=== PATIENT | female | born 1965 | race Two or more races ===

== ENCOUNTER 2017-03-08 13:22 | Emergency (ER) | payer OTHER ==
[2017-03-08 13:28] VITALS: TEMP 98; BMI 23.6
--- NOTE | 2017-03-08 14:02 | PDOC ---
History of Present Illness - General Chief Complaint: Pain Stated Complaint: PAIN Time Seen by Provider: 03/08/17 13:44 History Source: Patient - History of Present Illness Timing/Duration: other (this am) Associated Symptoms: reports: headaches, shortness of breath. denies: chest pain, cough, fever/chills, nausea/vomiting, weakness Past History - Past Medical History Allergies/Adverse Reactions: Allergies Allergy/AdvReac Type Severity Reaction Status Date / Time Penicillins Allergy Verified 03/08/17 13:28 Home Medications: Ambulatory Orders Folic Acid 1 mg PO DAILY 03/08/17 Losartan Potassium 0 mg PO DAILY 03/08/17 Methotrexate Sodium [Methotrexate] 12.5 mg PO WEEKLY 03/08/17 Metoprolol Succinate [Toprol Xl -] 25 mg PO DAILY 03/08/17 Oxycodone HCl 10 mg PO PRN PRN 03/08/17 Prednisone 5 mg PO DAILY 03/08/17 Anemia: Yes HTN: Yes Other medical history: ARTHRITIS - Surgical History Abdominal Surgery: No Appendectomy: No Cardiac Surgery: No Cholecystectomy: No Lung Surgery: No Neurologic Surgery: Yes (anurysum BRAIN) Orthopedic Surgery: Yes - Psycho/Social/Smoking Cessation Hx Anxiety: No Suicidal Ideation: No Smoking Status: Yes Smoking History: Current every day smoker Have you smoked in the past 12 months: Yes Number of Cigarettes Smoked Daily: 3 Information on smoking cessation initiated: No 'Breaking Loose' booklet given: 10/28/15 Hx Alcohol Use: Yes (SOCIAL) Drug/Substance Use Hx: No Substance Use Type: None Review of Systems - Review of Systems Constitutional: No: Chills, Fever HEENTM: No: Blurred Vision Respiratory: Yes: Shortness of Breath. No: Cough Cardiac (ROS): No: Chest Pain ABD/GI: No: Nausea, Vomiting Neurological: Yes: Headache, Dizziness. No: Numbness, Tingling, Weakness *Physical Exam - Vital Signs Last Vital Signs Temp Pulse Resp BP Pulse Ox 98 F 85 18 144/90 99 03/08/17 13:24 03/08/17 13:24 03/08/17 13:24 03/08/17 13:24 03/08/17 13:24 - Physical Exam General Appearance: Yes: Appropriately Dressed. No: Apparent Distress HEENT: positive: Normal Voice Neck: positive: Supple Respiratory/Chest: positive: Lungs Clear, Normal Breath Sounds. negative: Respiratory Distress Cardiovascular: positive: Regular Rate, S1, S2 Extremity: positive: Other (finger deformities 2/2 RA) Integumentary: positive: Dry, Warm Neurologic: positive: Fully Oriented, Alert, Normal Mood/Affect, Motor Strength 5/5. negative: Facial Droop Heart Score/ECG Review - ECG Intrepretation Comment:: 03/08/17 15:05 EKG w/ NSR, no ST-T wave changes, intervals and axis wnl ED Treatment Course - LABORATORY CBC & Chemistry Diagram: 03/08/17 14:50 03/08/17 14:50 - RADIOLOGY Radiology Studies Ordered: Category Date Time Status HEAD CT WITHOUT CONTRAST [CT] Stat CT Scan 03/08/17 13:55 Ordered CHEST X-RAY PORTABLE* [RAD] Stat Radiology 03/08/17 13:55 Ordered Medical Decision Making - Medical Decision Making 03/08/17 13:58 51-year-old female, history of RA on methotrexate and narcotics, brain aneurysm status post clipping, poorly controlled hypertension on multiple medications, here with multiple complaints today. Patient reports that her blood pressure this a.m. was 170s over 80s. Did have shortness of breath and dizziness at 9: 00 this morning that has since resolved. No chest pain, diaphoresis, nausea or vomiting. States her blood pressure remains poorly controlled despite being compliant with her medications and currently being told that her PMD cannot clear her for RA surgery secondary to chronic elevated BP. Patient also complaining of a right-sided headache radiating into right shoulder and arm 1 week intermittently. No dizziness, visual changes, nausea, vomiting or focal weakness See exam Poorly controlled HTN BP 144/90 in ED Asx currently -will check labs given sob/dizziness this am MOTA x 1 week s/p aneurysm chipping remotely No focal deficits -CT head 03/08/17 16:[address] unremarkable. Final BP 139/88. Pt well enough for discharge to continue f/u with her PMD 03/08/17 16:20 *DC/Admit/Observation/Transfer Diagnosis at time of Disposition: Elevated blood pressure reading Headache Qualifiers: Headache type: unspecified Headache chronicity pattern: acute headache Intractability: not intractable Qualified Code(s): R51 - Headache - Discharge Dispostion Disposition: HOME Condition at time of disposition: Improved - Referrals Referrals: Ruben Camargo [Primary Care Provider] - - Patient Instructions Additional Instructions: Your blood work and CAT scan were normal. Your blood pressure in the ED was 140s over 90s. Continue to take her medication and follow-up with your primary care physician
[2017-03-08 15:07] LABS: BASOPHIL 0.9 % (0-2.0); MCH 28.9 pg (25.7-33.7); MCHC 33.1 g/dl (32.0-36.0); MEAN CELL VOLUME 87.3 fl (80-96); NEUTROPHILS 62.1 % (42.8-82.8); PLATELET COUNT 327 K/MM3 (134-434); RDW 16.2 % (11.6-15.6)
[2017-03-08 15:21] LABS: URINE APPEARANCE CLEAR; URINE BILIRUBIN NEGATIVE (NEGATIVE); URINE BLOOD 2+ (NEGATIVE); URINE COLOR STRAW; URINE GLUCOSE (UA) NEGATIVE (NEGATIVE); URINE KETONE NEGATIVE (NEGATIVE); URINE LEUK ESTERASE TRACE (NEGATIVE); URINE NITRITE NEGATIVE (NEGATIVE); URINE PROTEIN NEGATIVE (NEGATIVE); URINE UROBILINOGEN NEGATIVE mg/dL (0.2-1.0)
[2017-03-08 15:25] LABS: URINE BACTERIA RARE /hpf (NONE SEEN); URINE MUCUS RARE; URINE RBC 11 /hpf (0-3); URINE WBC 1 /hpf (3-5)
[2017-03-08 15:47] LABS: ANION GAP 7 (8-16); CO2 29 mmol/L (21-32); CREATININE 0.7 mg/dL (0.55-1.02); GLUCOSE,RANDOM 81 mg/dL (74-106)
[2017-03-08 15:48] LABS: ALBUMIN 3.7 g/dl (3.4-5.0); BILIRUBIN,TOTAL 0.3 mg/dL (0.2-1.0); CALCIUM 9.8 mg/dL (8.5-10.1); SGOT/AST 18 U/L (15-37); SGPT/ALT 19 U/L (12-78); TOT PROT 7.3 g/dl (6.4-8.2)
[2017-03-08 15:50] LABS: ALK PHOS 83 U/L (45-117); TROPONIN I < 0.02 ng/ml (0.00-0.05)
[2017-03-08 16:21] VITALS: BP 139/88; PULSE 82
--- NOTE | 2017-03-09 09:14 | EKG ---
Test Reason : Blood Pressure : / mmHG Vent. Rate : 068 BPM Atrial Rate : 068 BPM P-R Int : 152 ms QRS Dur : 110 ms QT Int : 412 ms P-R-T Axes : 059 -07 043 degrees QTc Int : 438 ms NORMAL SINUS RHYTHM NORMAL ECG WHEN COMPARED WITH ECG OF 23-JUN-2016 16:17, NONSPECIFIC T WAVE ABNORMALITY NO LONGER EVIDENT IN ANTEROLATERAL LEADS Confirmed by TRISTAN REDDY, PINA ([id number]) on 03/09/2017 9:13:28 AM Referred By: Confirmed By:PINA HUDSON MD
== END 2017-03-08 16:21 | disposition home or self-care (01) ==
LOC: JER 13:22
DX: I10 Essential (primary) hypertension (principal); M06.80 Other specified rheumatoid arthritis, unspecified site; D64.9 Anemia, unspecified; F17.210 Nicotine dependence, cigarettes, uncomplicated
CPT/HCPCS: 36415; 70450-TC; 71010-TC; 80053; 81003; 81015; 82550; 84484; 85025; 93005; 93010; 99283-25

== ENCOUNTER 2019-06-30 13:10 | Inpatient (IN) | payer OTHER ==
[2019-06-30 13:45] VITALS: BMI 24.3
--- NOTE | 2019-06-30 15:17 | HP ---
CIWA Score Nausea/Vomitin-Mild Nausea/No Vomiting Muscle Tremors: 3 Anxiety: 3 Agitation: 5 Paroxysmal Sweats: No Perspiration Orientation: 0-Oriented Tacttile Disturbances: 0-None Auditory Disturbances: 0-None Visual Disturbances: 0-None Headache: 0-None Present CIWA-Ar Total Score: 12 - Admission Criteria [facility]AS[facility] Guidelines: Admission for Medically Managed Detox: Requires at least one of the followin. CIWA greater than 12 2. Seizures within the past 24 hours 3. Delirium tremens within the past 24 hours 4. Hallucinations within the past 24 hours 5. Acute intervention needed for co occurring medical disorder 6. Acute intervention needed for co occurring psychiatric disorder 7. Severe withdrawal that cannot be handled at a lower level of care (continued vomiting, continued diarrhea, abnormal vital signs) requiring intravenous medication and/or fluids 8. Admitting History and Physical - Admission History Source: Patient - Past Medical History Cardiovascular: Yes: HTN Heme/Onc: Yes: Anemia Rheumatology: Yes: Rheumatoid Arthritis - Past Surgical History Past Surgical History: Yes: Joint Replacement (right knee) - Smoking History Smoking history: Current every day smoker Have you smoked in the past 12 months: Yes Aproximately how many cigarettes per day: 6 - Alcohol/Substance Use Hx Alcohol Use: Yes (SOCIAL) History of Substance Use: reports: Prescription - Social History ADL: Independent History of Recent Travel: No Admission [facility] Allergies/Adverse Reactions: Allergies Allergy/AdvReac Type Severity Reaction Status Date / Time Penicillins Allergy Verified 06/30/19 13:34 History of Present Illness: 54 y.o. F PMH rheumatoid arthritis, HTN, ruptured aneurysm s/p clip presenting for benzo detox. Klonopin: Last took 1/2 stick xanax last night. Does not use daily. Took a whole pill on Thursday unsure of dose. Used to take 1/2 of the pill previously. Has been taking benzos for about 1 year, used to take xanax but recently switched to klonopin. Oxy: prescribed by her doctor for arthritis. Heroin: yesterday. uses when it is available, not daily. Uses maximum 3 bags, never used IV. Started using 2 years ago. EtOH: wine on occasion last drank 1 month ago. Cigarettes: 6 cigarettes >20 years PSH: 4 surgeries for hands, R knee replacement, L ankle surgery All: PCN Meds: amlodopine, Methrotrexate , Enbrel injections monthly. Patient is noncompliant with medications. Exam Limitations: No Limitations - Ebola screening Have you traveled outside of the country in the last 21 days: No Have you had contact with anyone from an Ebola affected area: No Do you have a fever: No - Review of Systems Constitutional: No Symptoms Reported EENT: reports: No Symptoms Reported Respiratory: reports: No Symptoms reported Cardiac: reports: No Symptoms Reported GI: reports: No Symptoms Reported Musculoskeletal: reports: Joint Pain (chronic) Integumentary: reports: No Symptoms Reported Neuro: reports: Tremors Endocrine: reports: No Symptoms Reported Hematology: reports: No Symptoms Reported Psychiatric: reports: Mood/Affect Appropiate, Orientated x3 Patient History - Patient Medical History Hx Anemia: Yes Hx Asthma: No Hx Chronic Obstructive Pulmonary Disease (COPD): No Hx Cancer: No Hx Cardiac Disorders: No Hx Congestive Heart Failure: No Hx Hypertension: Yes Hx Hypercholesterolemia: No Hx Pacemaker: No HX Cerebrovascular Accident: No Hx Seizures: No Hx Dementia: No Hx Diabetes: No Hx Gastrointestinal Disorders: No Hx Liver Disease: No Hx Genitourinary Disorders: No Hx Sexually Transmitted Disorders: No Hx Renal Disease (ESRD): No Hx Thyroid Disease: No Hx Human Immunodeficiency Virus (HIV): No Hx Hepatitis C: No Hx Depression: No Hx Suicide Attempt: No Hx Bipolar Disorder: No Hx Schizophrenia: No - Patient Surgical History Past Surgical History: Yes Hx Neurologic Surgery: Yes (aneurysm clip) Hx Cataract Extraction: No Hx Cardiac Surgery: No Hx Lung Surgery: No Hx Breast Surgery: No Hx Breast Biopsy: No Hx Abdominal Surgery: No Hx Appendectomy: No Hx Cholecystectomy: No Hx Genitourinary Surgery: No Hx Section: No Hx Orthopedic Surgery: Yes Hx Hysterectomy: No Anesthesia Reaction: No - Smoking Cessation Smoking history: Current every day smoker Have you smoked in the past 12 months: Yes Aproximately how many cigarettes per day: 6 Initiated information on smoking cessation: Yes 'Breaking Loose' booklet given: 06/30/19 - Substance & Tx. History Substance Use Type: Heroin, Opiates, Prescribed - Substances abused Alprazolam (Xanax) Substance route: Oral Frequency: Daily Amount used: 2 sticks Age of first use: 52 Date of last use: 06/29/19 Benzodiazepine (Klonopin) Substance route: Oral Frequency: Daily Amount used: 4 tabs Age of first use: 54 Date of last use: 06/28/19 Heroin Substance route: Inhalation Frequency: 3-6 times per week Amount used: 3-4 bags Age of first use: 51 Date of last use: 06/29/19 Admission Physical Exam [facility] - Vital Signs Vital Signs: Vital Signs - 24 hr 06/30/19 13:39 Temperature 98.1 F Pulse Rate 80 Respiratory 18 Rate Blood Pressure 161/105 H - Physical General Appearance: Yes: Tremorous HEENTM: Yes: Normal ENT Inspection, Normocephalic Respiratory: Yes: Lungs Clear, Normal Breath Sounds, No Respiratory Distress, No Accessory Muscle Use Neck: Yes: No masses,lesions,Nodules Cardiology: Yes: Regular Rhythm, Regular Rate, S1, S2 Abdominal: Yes: Non Tender, Soft Back: Yes: Normal Inspection Musculoskeletal: Yes: Joint Stiffness (b/l ulnar deviations of hands; B/l LE stiffness), Muscle Pain Extremities: Yes: Other (severe rheumatoid arthritis of hands, ankles, knees, hips) Neurological: Yes: Fully Oriented, Alert, Normal Mood/Affect Integumentary: Yes: Within Normal Limits Lymphatic: Yes: Within Normal Limits Breathalyzer - Breathalyzer Breathalyzer: 0 Urine Drug Screen - Test Device Lot number: [id number] Expiration date: 03/16/21 - Control Is test valid?: Yes - Results Drug screen NEGATIVE: No Urine drug screen results: MOP-Opiates, OXY-Oxycodone, BZO-Benzodiazepines Inpatient Rehab Admission - Rehab Decision to Admit Inpatient rehab admission?: No
[2019-06-30] MEDS ORDERED: BISMUTH SUBSALICYLATE 524 MG/30 ML UD PO PRN (15:57)
[2019-06-30] MEDS ORDERED: ACETAMINOPHEN 325 MG TABLET (FP) PO PRN ×2 (15:57)
[2019-06-30] MEDS ORDERED: IBUPROFEN 400 MG TABLET (FP) PO PRN (15:57)
[2019-06-30] MEDS ORDERED: METHOCARBAMOL 500 MG TABLET PO PRN (15:57)
[2019-06-30] MEDS ORDERED: MAGNESIUM HYDROX 2400MG/30ML ORAL SUSPENSION 30 ML CUP PO PRN (15:57)
[2019-06-30] MEDS ORDERED: MAG HYDROX/AL HYDROX/SIMETH 30 ML UNIT-DOSE CUP PO PRN (15:57)
[2019-06-30] MEDS ORDERED: MAGNESIUM CITRATE 300 ML BOTTLE PO PRN (15:57)
[2019-06-30] MEDS ORDERED: NICOTINE POLACRILEX 2 MG GUM BUC PRN (15:57)
[2019-06-30] MEDS ORDERED: MENTHOL/PHENOL 1 EACH UD MM PRN (15:57)
--- NOTE | 2019-06-30 16:23 | PN ---
Teaching Attending Note Name of Resident: Linnea Michaud ATTENDING PHYSICIAN STATEMENT I saw and evaluated the patient. I reviewed the resident's note and discussed the case with the resident. I agree with the resident's findings and plan as documented. SUBJECTIVE:54 y.o. female pt here requesting detox from sedative use , reports illicit xanax and klonopin in the last year , not daily use . reports episode of Klonopin use 1 week ago Thursday , 11 yr old dtr called 911 and [facility] to [facility], CPS called . Heroin: reports use x 2 years , latest yesterday. uses when it is available, not daily , denies symptoms if not using , 1 bag on average , maximum 3 bags heroin via inhalation , denies IV. PMH rheumatoid arthritis, HTN, ruptured aneurysm s/p clipping surgeries for hands x 4 lexy , R knee replacement, L ankle surgery tobacco : 6 cigs/day OBJECTIVE: wnwd Vital Signs - 24 hr 06/30/19 13:39 Temperature 98.1 F Pulse Rate 80 Respiratory 18 Rate Blood Pressure 161/105 H ASSESSMENT AND PLAN: Sedative anxiolytic abuse , episodic Nicotine dependence - smoking cessation counseling
[2019-06-30] MEDS: NICOTINE 21 MG/24 HOURS TOPICAL PATCH TD SCH (17:04)
[2019-06-30] MEDS: diazePAM 5 MG TABLET PO PRN (17:04)
[2019-06-30] MEDS: hydrOXYzine PAMOATE 25 MG CAPSULE (FP) PO PRN (18:18)
[2019-06-30] MEDS ORDERED: MELATONIN 5 MG TABLETS PO PRN (22:00)
[2019-06-30] MEDS: THIAMINE HCL 100 MG TABLET (FP) PO SCH (22:05)
[2019-06-30] MEDS: diazePAM 5 MG TABLET PO SCH (22:06)
[2019-07-01] MEDS: diazePAM 5 MG TABLET PO PRN (02:04)
[2019-07-01] MEDS: diazePAM 5 MG TABLET PO SCH ×3 (06:17→22:22)
[2019-07-01] MEDS: NICOTINE 21 MG/24 HOURS TOPICAL PATCH TD SCH (10:27)
[2019-07-01] MEDS: LOSARTAN POTASSIUM 50 MG TABLET (FP) PO SCH (10:27)
[2019-07-01] MEDS: PRENATAL VITAMINS W/ FOLIC ACID TABLET (FP) PO SCH (10:27)
[2019-07-01 10:29] LABS: ALBUMIN 3.7 g/dl (3.4-5.0); BILIRUBIN,TOTAL 0.3 mg/dL (0.2-1); BLOOD UREA NITROGEN 10.4 mg/dL (7-18); CREATININE 0.6 mg/dL (0.55-1.3); POTASSIUM 3.2 mmol/L (3.5-5.1); TOT PROT 7.4 g/dl (6.4-8.2)
[2019-07-01 10:46] LABS: HEMATOCRIT 36.7 % (32.4-45.2); HEMOGLOBIN 12.2 GM/dL (10.7-15.3); MCHC 33.2 g/dl (32.0-36.0); MEAN CELL VOLUME 84.4 fl (80-96); MEAN PLT VOLUME 8.6 fl (7.5-11.1); PLATELET COUNT 305 K/MM3 (134-434); RBC 4.35 M/mm3 (3.60-5.2); RDW 15.9 % (11.6-15.6); WHITE BLOOD COUNT 5.2 K/mm3 (4.0-10.0)
[2019-07-01] MEDS: hydrOXYzine PAMOATE 25 MG CAPSULE (FP) PO PRN (12:39)
--- NOTE | 2019-07-01 13:25 | PN ---
S CIWA - CIWA Score Nausea/Vomitin-No Nausea/No Vomiting Muscle Tremors: 3 Anxiety: 3 Agitation: 2 Paroxysmal Sweats: 2 Orientation: 0-Oriented Tacttile Disturbances: 0-None Auditory Disturbances: 0-None Visual Disturbances: 0-None Headache: 0-None Present CIWA-Ar Total Score: 10 BHS Progress Note (SOAP) Subjective: sweats shakes irritable body aches Objective: 07/01/19 13:23 Vital Signs Temperature 98.1 F 07/01/19 10:05 Pulse Rate 106 H 07/01/19 10:05 Respiratory Rate 18 07/01/19 10:05 Blood Pressure 144/73 07/01/19 10:05 O2 Sat by Pulse Oximetry (%) Laboratory Tests 06/30/19 07/01/19 07/01/19 14:53 07:00 07:00 WBC 5.2 RBC 4.35 Hgb 12.2 Hct 36.7 MCV 84.4 MCH 28.0 MCHC 33.2 RDW 15.9 H Plt Count 305 MPV 8.6 Sodium 143 Potassium 3.2 L Chloride 112 H Carbon Dioxide 24 Anion Gap 8 BUN 10.4 Creatinine 0.6 Est GFR (CKD-EPI)AfAm 119.77 Est GFR (CKD-EPI)NonAf 103.34 Random Glucose 94 Calcium 10.0 Total Bilirubin 0.3 AST 24 ALT 24 Alkaline Phosphatase 105 Total Protein 7.4 Albumin 3.7 POC Urine HCG, Qual Negative RPR Titer 07/01/19 07:00 WBC RBC Hgb Hct MCV MCH MCHC RDW Plt Count MPV Sodium Potassium Chloride Carbon Dioxide Anion Gap BUN Creatinine Est GFR (CKD-EPI)AfAm Est GFR (CKD-EPI)NonAf Random Glucose Calcium Total Bilirubin AST ALT Alkaline Phosphatase Total Protein Albumin POC Urine HCG, Qual RPR Titer Nonreactive labs noted mild hypokalemia 3.4 will replenish aaox3 ambulating no acute distress Assessment: 07/01/19 13:24 withdrawals sx Plan: continue detox kdur 20meq x 2 days increase fluids
[2019-07-01] MEDS: GABAPENTIN 100 MG CAPSULE (FP) PO PRN (19:47)
[2019-07-01] MEDS ORDERED: cloNIDine HCL 0.1 MG TABLET PO ONE (19:48)
[2019-07-01] MEDS: THIAMINE HCL 100 MG TABLET (FP) PO SCH (22:21)
[2019-07-02] MEDS: GABAPENTIN 100 MG CAPSULE (FP) PO PRN ×3 (05:49→22:34)
[2019-07-02] MEDS: diazePAM 5 MG TABLET PO SCH ×2 (05:50→17:19)
[2019-07-02] MEDS: NICOTINE 21 MG/24 HOURS TOPICAL PATCH TD SCH (10:19)
[2019-07-02] MEDS: LOSARTAN POTASSIUM 50 MG TABLET (FP) PO SCH (10:20)
[2019-07-02] MEDS: PRENATAL VITAMINS W/ FOLIC ACID TABLET (FP) PO SCH (10:20)
--- NOTE | 2019-07-02 15:17 | PN ---
S CIWA - CIWA Score Nausea/Vomitin-No Nausea/No Vomiting Muscle Tremors: None Anxiety: 4-Mod. Anxious/Guarded Agitation: 3 Paroxysmal Sweats: No Perspiration Orientation: 0-Oriented Tacttile Disturbances: 2-Mild Itch/Numbness/Burn Auditory Disturbances: 0-None Visual Disturbances: 0-None Headache: 0-None Present CIWA-Ar Total Score: 9 BHS Progress Note (SOAP) Subjective: Body Aches, Anxious. Objective: PATIENT A & O X 3, OBSERVED AMBULATING ON DETOX UNIT UNASSISTED. IN NO ACUTE DISTRESS. 07/02/19 15:18 Vital Signs Temperature 99.0 F 07/02/19 14:53 Pulse Rate 91 H 07/02/19 14:53 Respiratory Rate 18 07/02/19 14:53 Blood Pressure 169/90 07/02/19 14:53 O2 Sat by Pulse Oximetry (%) Laboratory Tests 06/30/19 07/01/19 07/01/19 14:53 07:00 07:00 WBC 5.2 RBC 4.35 Hgb 12.2 Hct 36.7 MCV 84.4 MCH 28.0 MCHC 33.2 RDW 15.9 H Plt Count 305 MPV 8.6 Sodium 143 Potassium 3.2 L Chloride 112 H Carbon Dioxide 24 Anion Gap 8 BUN 10.4 Creatinine 0.6 Est GFR (CKD-EPI)AfAm 119.77 Est GFR (CKD-EPI)NonAf 103.34 Random Glucose 94 Calcium 10.0 Total Bilirubin 0.3 AST 24 ALT 24 Alkaline Phosphatase 105 Total Protein 7.4 Albumin 3.7 POC Urine HCG, Qual Negative RPR Titer 07/01/19 07:00 WBC RBC Hgb Hct MCV MCH MCHC RDW Plt Count MPV Sodium Potassium Chloride Carbon Dioxide Anion Gap BUN Creatinine Est GFR (CKD-EPI)AfAm Est GFR (CKD-EPI)NonAf Random Glucose Calcium Total Bilirubin AST ALT Alkaline Phosphatase Total Protein Albumin POC Urine HCG, Qual RPR Titer Nonreactive LABS NOTED. Assessment: 07/02/19 15:20 WITHDRAWAL SYMPTOMS. HYPOKALEMIA. Plan: CONTINUE DETOX. K-DUR, 40 MEQ ORALLY X 1 DOSE FOR LOW K LEVEL NOTED ON DETOX ADMISSION LABORATORY ASSESSMENT. PATIENT SCHEDULED FOR D/C FROM DETOX UNIT TOMORROW.
[2019-07-02] MEDS ORDERED: POTASSIUM CHLORIDE TABS 20 MEQ TABLET.ER (FP) PO ONE (15:19)
[2019-07-02] MEDS: hydrOXYzine PAMOATE 25 MG CAPSULE (FP) PO PRN (17:33)
[2019-07-02] MEDS: diazePAM 5 MG TABLET PO PRN (22:34)
[2019-07-02] MEDS: THIAMINE HCL 100 MG TABLET (FP) PO SCH (22:35)
[2019-07-03] MEDS: GABAPENTIN 100 MG CAPSULE (FP) PO PRN (05:22)
[2019-07-03] MEDS ORDERED: diazePAM 5 MG TABLET PO ONE (06:00)
[2019-07-03 06:23] VITALS: BP 155/100; PULSE 84; TEMP 97
[2019-07-03] MEDS: LOSARTAN POTASSIUM 50 MG TABLET (FP) PO SCH (09:13)
--- NOTE | 2019-07-03 17:16 | DS ---
[facility] Detox Discharge Summary Admission Date: 06/30/19 Discharge Date: 07/03/19 - History Present History: Opioid Dependence, Sedative Dependence Additional Comments: Patient had elevated b/p prior to discharge: 173/151 in left arm (asymptomatic, was excited to go home), repeated in right arm was 142/93, pulse 89. Patient received her b/p meds prior to being discharge. Patient successfully completed detox and discharged safely. Instructed to follow up with PCP within one week. Patient discharged safely in stable condition. Pertinent Past History: HTN Anemia RA Nicotine dependence Sedative dependence Opioid dependence - Physical Exam Results Vital Signs: Vital Signs Temperature 97 F L 07/03/19 06:22 Pulse Rate 84 07/03/19 06:22 Respiratory Rate 18 07/03/19 06:22 Blood Pressure 155/100 07/03/19 06:22 O2 Sat by Pulse Oximetry (%) Pertinent Admission Physical Exam Findings: Withdrawal sxs Laboratory Tests 06/30/19 07/01/19 07/01/19 14:53 07:00 07:00 WBC 5.2 RBC 4.35 Hgb 12.2 Hct 36.7 MCV 84.4 MCH 28.0 MCHC 33.2 RDW 15.9 H Plt Count 305 MPV 8.6 Sodium 143 Potassium 3.2 L Chloride 112 H Carbon Dioxide 24 Anion Gap 8 BUN 10.4 Creatinine 0.6 Est GFR (CKD-EPI)AfAm 119.77 Est GFR (CKD-EPI)NonAf 103.34 Random Glucose 94 Calcium 10.0 Total Bilirubin 0.3 AST 24 ALT 24 Alkaline Phosphatase 105 Total Protein 7.4 Albumin 3.7 POC Urine HCG, Qual Negative RPR Titer 07/01/19 07:00 WBC RBC Hgb Hct MCV MCH MCHC RDW Plt Count MPV Sodium Potassium Chloride Carbon Dioxide Anion Gap BUN Creatinine Est GFR (CKD-EPI)AfAm Est GFR (CKD-EPI)NonAf Random Glucose Calcium Total Bilirubin AST ALT Alkaline Phosphatase Total Protein Albumin POC Urine HCG, Qual RPR Titer Nonreactive Labs reviewed: K 3.2 (supplemented) - Treatment Hospital Course: Detox Protocol Followed, Detoxed Safely, Responded well, Discharged Condition Good - Medication Discharge Medications: Ambulatory Orders Folic Acid 1 mg PO DAILY 03/08/17 Methotrexate Sodium [Methotrexate] 2.5 mg PO WEEKLY 03/08/17 Prednisone 5 mg PO DAILY 03/08/17 Losartan Potassium 50 mg PO DAILY 06/30/19 Oxycodone HCl/Acetaminophen [Percocet 10-325 mg Tablet] 1 tab PO Q6H 06/30/19 - Diagnosis (1) Anemia Status: Chronic (2) Sedative dependence Status: Chronic (3) Opioid dependence Status: Chronic (4) Hypokalemia Status: Acute (5) HTN (hypertension) Status: Chronic (6) Rheumatoid arthritis Status: Chronic - AMA Did Patient Leave Against Medical Advice: No (Instructed to follow up with PCP within one week)
== END 2019-07-03 09:26 | disposition home or self-care (01) | DRG 773 ==
LOC: YASAS 13:10 → Y6N 16:25
PROVIDERS: ADMIT Allergy & Immunology; ATTEND Allergy & Immunology
PROC: HZ2ZZZZ Detoxification Services for Substance Abuse Treatment (ICD-10-PCS; principal; 2019-06-30)
DX: F11.23 Opioid dependence with withdrawal (principal); F13.230 Sedative, hypnotic or anxiolytic dependence with withdrawal, uncomplicated; F17.210 Nicotine dependence, cigarettes, uncomplicated; I10 Essential (primary) hypertension; E87.6 Hypokalemia; M06.9 Rheumatoid arthritis, unspecified; D64.9 Anemia, unspecified; Z88.0 Allergy status to penicillin; Z96.651 Presence of right artificial knee joint
CPT/HCPCS: 36415; 80053; 81025; 85027; 86593; J0735

== ENCOUNTER 2019-08-04 15:59 | Inpatient (IN) | payer OTHER ==
--- NOTE | 2019-08-04 16:08 | PDOC ---
Rapid Medical Evaluation Chief Complaint: Shortness of Breath Time Seen by Provider: 08/04/19 16:03 Medical Evaluation: Allergies Allergy/AdvReac Type Severity Reaction Status Date / Time Penicillins Allergy Verified 06/30/19 13:34 08/04/19 16:03 I have performed a brief in-person evaluation of this patient. The patient presents with a chief complaint of:SOB with cough and SOB, cough thick phlegm - no fevers - takes Prednisone for R.A. Pertinent physical exam findings: tight BS/ I have ordered the following: DuoNeb The patient will proceed to the ED for further evaluation. 08/04/19 16:07 08/04/19 16:09 Discharge Disposition - Diagnosis Cough - Discharge Dispostion Condition at time of disposition: Stable - Referrals - Patient Instructions - Post Discharge Activity
[2019-08-04] MEDS ORDERED: ALBUTEROL SO4 2.5/IPRATROPIUM 0.5 INH SOL 3 ML VIAL.NEB. NEB SCH (16:45)
[2019-08-04] MEDS ORDERED: ALBUTEROL SO4 2.5/IPRATROPIUM 0.5 INH SOL 3 ML VIAL.NEB. NEB ONE ×3 (16:49→21:15)
--- NOTE | 2019-08-04 16:55 | PDOC ---
History of Present Illness - General Chief Complaint: Shortness of Breath Stated Complaint: CHEST PAIN Time Seen by Provider: 08/04/19 16:03 - History of Present Illness Initial Comments: 08/04/19 16:56 54-year-old female, history of RA on methotrexate and narcotics, brain aneurysm status post clipping, poorly controlled hypertension who presents with 3 days of shortness of breath and cough productive of phlegm as well as fevers at night , tmax of 102 last night for which she took Children's Motrin as that was all she had at home. She denies fever today. She endorses some chest tightness with the shortness of breath. She has no other complaints. ROS GENERAL/CONSTITUTIONAL: + fever or chills. No weakness. HEAD, EYES, EARS, NOSE AND THROAT: No sore throat. CARDIOVASCULAR: No chest pain +shortness of breath RESPIRATORY: + cough, No wheezing, or hemoptysis. GASTROINTESTINAL: No nausea, vomiting, + diarrhea, No constipation. GENITOURINARY: No dysuria, frequency, or change in urination. MUSCULOSKELETAL: No joint or muscle swelling or pain. No neck or back pain. SKIN: No rash PE GENERAL: Awake, alert, and fully oriented, in no acute distress HEAD: No signs of trauma, normocephalic, atraumatic EYES: EOMI, sclera anicteric, conjunctiva clear ENT: oropharynx clear without exudates. Moist mucosa NECK: Normal ROM, supple LUNGS: No distress, speaks full sentences, + coarse breath sounds anteriorly HEART: Regular rate and rhythm, normal S1 and S2, no murmurs, rubs or gallops, peripheral pulses normal and equal bilaterally. ABDOMEN: Soft, nontender No guarding, no rebound. No masses EXTREMITIES : Normal inspection, Normal range of motion, no edema. No clubbing or cyanosis. NEUROLOGICAL: Cranial nerves II through XII grossly intact. Normal speech, no focal sensorimotor deficits SKIN: Warm, Dry, normal turgor, no rashes or lesions noted MDM DDX including but not limited to: viral uri vs pna copd exacerb ED Course: given 2 duonebs ekg: nsr at 93bpm cxr: some peribronchial cuffing, no focal infiltrate, pleural effusion or ptx, as read by this junior underwriter lft and alk phos with elevation will do US GB and ECHO Patient with persistent shortness of breath febrile to 101.3 Patient immunosuppresants for RA and with clinical signs of PNA dose abx, fluids, tylenol, repeat duoneb will plan for admission for PNA Linnea Robins PGY2 Emergency Medicine Past History - Past Medical History Allergies/Adverse Reactions: Allergies Allergy/AdvReac Type Severity Reaction Status Date / Time Penicillins Allergy Verified 06/30/19 13:34 Home Medications: Ambulatory Orders Methotrexate Sodium [Methotrexate] 2.5 mg PO WEEKLY 03/08/17 Amlodipine Besylate [Norvasc -] 5 mg PO DAILY 08/05/19 Oxycodone HCl/Acetaminophen [Percocet 10-325 mg Tablet] 10 - 325 mg PO QID 08/05 Ferrous Sulfate 325 mg PO BID #30 tablet 08/06/19 levoFLOXacin [Levaquin] 750 mg PO DAILY 5 Days #5 tab 08/06/19 predniSONE [Deltasone -] 5 mg PO DAILY #14 tablet 08/07/19 Anemia: Yes Asthma: No Cancer: No Cardiac Disorders: No CVA: No COPD: No CHF: No Dementia: No Diabetes: No GI Disorders: No Disorders: No HTN: Yes Hypercholesterolemia: No Kidney Stones: No Liver Disease: No Seizures: No Thyroid Disease: No - Surgical History Abdominal Surgery: No Appendectomy: No Cardiac Surgery: No Cholecystectomy: No Lung Surgery: No Neurologic Surgery: Yes (aneurysm clip) Orthopedic Surgery: Yes - Reproductive History PID: No - Psycho Social/Smoking Cessation Hx Smoking Status: Yes Smoking History: Current every day smoker Have you smoked in the past 12 months: Yes Number of Cigarettes Smoked Daily: 1 Information on smoking cessation initiated: No 'Breaking Loose' booklet given: 06/30/19 Hx Alcohol Use: Yes (SOCIAL) Drug/Substance Use Hx: No Substance Use Type: Heroin, Opiates, Prescribed Hx Substance Use Treatment: Yes *Physical Exam - Vital Signs Last Vital Signs Temp Pulse Resp BP Pulse Ox 98.2 F 100 H 19 133/89 97 08/04/19 16:03 08/04/19 16:03 08/04/19 16:03 08/04/19 16:03 08/04/19 16:03 ED Treatment Course - LABORATORY CBC & Chemistry Diagram: 08/06/19 06:40 08/06/19 06:40 - RADIOLOGY Radiology Studies Ordered: Category Date Time Status CHEST X-RAY PORTABLE* [RAD] Stat Radiology 08/04/19 16:40 Ordered Discharge - Discharge Information Problems reviewed: Yes Clinical Impression/Diagnosis: Cough Condition: Improved Disposition: HOME - Follow up/Referral - Patient Discharge Instructions - Post Discharge Activity
[2019-08-04 17:07] LABS: BASO % 0.6 % (0-2.0); EOS % 3.5 % (0-4.5); HEMATOCRIT 31.7 % (32.4-45.2); HEMOGLOBIN 10.7 GM/dL (10.7-15.3); LYMPH % 18.6 % (8-40); MCH 28.3 pg (25.7-33.7); MCHC 33.9 g/dl (32.0-36.0); MEAN CELL VOLUME 83.4 fl (80-96); MEAN PLT VOLUME 8.4 fl (7.5-11.1); MONO % 4.5 % (3.8-10.2); NEUT % 72.8 % (42.8-82.8); PLATELET COUNT 390 K/MM3 (134-434); WHITE BLOOD COUNT 11.3 K/mm3 (4.0-10.0)
[2019-08-04 17:38] LABS: ALBUMIN 3.1 g/dl (3.4-5.0); BILIRUBIN,TOTAL 0.8 mg/dL (0.2-1); BLOOD UREA NITROGEN 10.7 mg/dL (7-18); CALCIUM 9.5 mg/dL (8.5-10.1); CREATININE 0.9 mg/dL (0.55-1.3); POTASSIUM 4.5 mmol/L (3.5-5.1); TOT PROT 7.6 g/dl (6.4-8.2)
--- NOTE | 2019-08-04 19:27 | PDOC ---
Documentation entered by Madison Rocha SCRIBE, acting as scribe for Eleonora Colmenares MD. Eleonora Colmenares MD: This documentation has been prepared by the Josefina rosenberg Brenda, SCRIBE, under my direction and personally reviewed by me in its entirety. I confirm that the documentation accurately reflects all work, treatment, procedures, and medical decision making performed by me. Attending Attestation - Resident Resident Name: Linnea Robins - ED Attending Attestation I have performed the following: I have examined & evaluated the patient, The case was reviewed & discussed with the resident, I agree w/resident's findings & plan, Exceptions are as noted - HPI HPI: 08/04/19 17:50 The patient is a 54 year old female, with a significant PMH of 2 episodes of pneumonia in the past, rheumatoid arthritis, brain aneurysm s/p clipping and HTN who presents to the emergency department with 3 days of SOB and productive cough. She also endorses a fever at 102 yesterday. Patient reports taking childrens motrin, being it all she had at home. Patient reports no fevers today. Patient also endorses some mild chest tightening. The patient denies headache and dizziness. Denies nausea, vomiting, diarrhea and constipation. Denies any urinary symptoms. Denies any other symptoms. Allergies: NKA Past surgical history: Aneurysm clip Social history: Tobacco use PCP: Long - Physicial Exam PE: 08/04/19 18:22 awake alert lungs decreased airflow at bases, no crackles or wheezes appreciated. heart rrr no mrg abd soft nt nd ext wwp. no edema. no calf tenderness. pt awake alert nAD. 08/04/19 20:27 - Medical Decision Making 08/04/19 20:28 54-year-old female history of rheumatoid arthritis currently immunosuppressed on methotrexate and steroids history of long-time smoking and likely COPD here complaining of 3 days of short of breath and cough productive of yellow sputum. Patient states she has been having cough for several days last night started getting a fever and chills with shakes. Denies any nausea or vomiting no abdominal pain no diarrhea denies any recent known sick contacts no recent travel no rash cough is productive of yellow phlegm does have pain with coughing otherwise does not have chest pain. No moderating factors 08/04/19 20:28 My exam patient is Reiger ring she has tachycardia decreased airflow at the bases. Status post nebulizers skin is warm and dry no rash abdomen is soft and nontender Differential includes pneumonia, viral bronchitis flu pericarditis pericardial effusion due to rheumatoid arthritis PE considered however less likely due to the patient's infectious symptoms of a cough and sputum with fevers plan focused ED bedside ultrasound of the heart. Focused ED ultrasound echo was obtained showed good contractility the IVC is very collapsible no pericardial effusion is noted no RV dilation or strain Patient's LFTs were noted to be elevated focused ED bedside ultrasound right upper quadrant was obtained. There is a Richi sign with complete opacification of the gallbladder lumen by gallstones. Patient has a negative sonographic Acosta's. The anterior gallbladder wall is normal measuring 2.89 mm. CBD is also normal less than 4 mm. Impression multiple opacification of the gallbladder with large amounts of gallstones and a Richi sign Plan we will add a lipase the patient's work-up. Due to her productive cough elevated white count of 11 and presence of fever will give Tylenol will cover for COPD/bronchitis pneumonia. Patient's flu swab was negative due to the fact that she is immunosuppressed and will admit for COPD, bronchitis, and clinical pneumonia 08/04/19 20:37 pt cxr read as normal. however lateral view with concerns for retrocardiac infiltrate. will treat with levaquin Heart Score/ECG Review #1 ECG reviewed & interpreted by me at: 20:31 General ECG Interpretation: Sinus Rhythm, Normal Rate (93), Normal Intervals, No acute ischemic changes
[2019-08-04] MEDS ORDERED: ACETAMINOPHEN 500 MG TABLET (FP) PO ONE (20:01)
[2019-08-04] MEDS ORDERED: ACETAMINOPHEN 325 MG TABLET (FP) ONE (20:06)
[2019-08-04] MEDS ORDERED: ACETAMINOPHEN 1000 MG/100 ML VIAL (NON FORMULARY) IVPB ONE (20:07)
[2019-08-04] MEDS ORDERED: ACETAMINOPHEN INJECTION 100 ML IVPB ONE (20:07)
[2019-08-04] MEDS ORDERED: AZITHROMYCIN IVPB 500 MG in DEXTROSE 5%-WATER - 250 ML IVPB ONE (20:23)
[2019-08-04] MEDS ORDERED: SODIUM CHLORIDE 1,000 ML IV SCH (20:30)
--- NOTE | 2019-08-04 20:44 | PN ---
Teaching Attending Note Name of Resident: Hallie Edward ATTENDING PHYSICIAN STATEMENT I saw and evaluated the patient. I reviewed the resident's note and discussed the case with the resident. I agree with the resident's findings and plan as documented. SUBJECTIVE: Patient is a 54 year old woman with a PMH of RA on methotrexate and narcotics, Polysubstance abuse (heroin, cocaine, marijuana), Tobacco use, Penicillin allergy, Right knee joint replacement, Brain aneurysm (s/p clipping), and poorly controlled Hypertension who presents with 3 days of shortness of breath and cough productive of phlegm as well as fevers at night. Had Tmax of 102 last night for which she took Children's Motrin. She denies fever today, but had chills and diarrhea. She has associated chest tightness with the shortness of breath. Denies vomiting, dysuria, frequency, urgency or headache. Denies alcohol use. No recent travel or sick contacts. Patient is on disability due to her RA. OBJECTIVE: Alert Vital Signs Period Temp Pulse Resp BP Sys/Amado Pulse Ox Last 24 Hr 98.2 F-98.5 F 97-100 19-19 133-135/69-89 97-98 HEENT: No Jaundice, eye redness or discharge, PERRLA, EOMI. Normocephalic, atraumatic. External ears are normal and hearing is grossly intact. No nasal discharge. Neck: Supple, nontender. No palpable adenopathy or thyromegaly. No JVD Chest: Good effort. Clear to auscultation and percussion. Heart: Regular. No S3, rub or murmur Abdomen: Not distended, soft, nontender and no HSM. No rebound or guarding. Normal bowel sounds. Ext: Peripheral pulses intact. No leg edema. Skin: Warm and dry. No petechiae, rash or ecchymosis. Neuro: Alert. Oriented x3. CN 2-12 grossly intact. Sensation grossly intact in all four extremities and DTR are symmetric. Psych: Appropriate mood and affect. Good insight. Current Medications Generic Name Dose Route Start Last Admin Trade Name Freq PRN Reason Stop Dose Admin Albuterol/Ipratropium 1 amp 08/04/19 16:45 08/04/19 16:52 Duoneb - NEB 08/06/19 16:46 1 amp ONCE RADHA Administration Azithromycin 500 mg/ Dextrose 250 mls @ 250 mls/hr 08/04/19 20:23 IVPB 08/04/19 21:22 ONCE ONE Levofloxacin 750 mg in 150 mls @ 100 mls/hr 08/04/19 20:23 Levaquin 750 Mg Premixed Ivpb - IVPB 08/04/19 21:52 ONCE ONE Protocol Sodium Chloride 1,000 mls @ 42 mls/hr 08/04/19 20:30 Normal Saline - IV [facility] Home Medications Medication Instructions Recorded Folic Acid 1 mg PO DAILY 03/08/17 Methotrexate Sodium [Methotrexate] 2.5 mg PO WEEKLY 03/08/17 Losartan Potassium 50 mg PO DAILY 06/30/19 Abnormal Lab Results 08/04/19 08/04/19 16:45 16:45 WBC 11.3 H Hct 31.7 L RDW 16.0 H Absolute Neuts (auto) 8.3 H Sodium 134 L Random Glucose 110 H AST 100 H ALT 103 H Alkaline Phosphatase 518 H Albumin 3.1 L ASSESSMENT AND PLAN: 1. RLL Pneumonia - Will treat with IV Levofloxacin and Azithromycin and send urine for legionella antigen. Flu swab is negative. A diana concern is that patient continue to have repeat episodes of pneumonia. Patient is on methotrexate, "a biological" and prednisone. During the day, will contact her PCP/Medical Record Librarians Teacher to discuss her RA drug regimen and the need to continue all of them. EKG shows NSR with LAE. Abnormal LFTs are unexplained. Bedside sonogram showed gall stone but no significant evidence of cholecystitis. Will get CT abdomen/pelvis, HbA1c, hepatitis serology and trend LFTs. Will send any diarrheal stool for C.Diff, Ova /Parasites and Leukocytes. Will continue comprehensive care for all of patient s comorbid conditions. Will monitor closely for drug withdrawal, consult conservation specialist and refer to Drug Detox upon discharge. 2. Hypoalbuminemia - Possibly due to combined effects of malnutrition and inflammation associated with comorbid chronic conditions. Will ensure adequate dietary protein intake and also consult merchandise director. 3. Tobacco Use Counseled on risks associated with tobacco use. We will provide patient all the necessary assistance to facilitate smoking cessation and prescribe Nicotine patch. 4. Anemia - Likely multifactorial. Will do basic anemia work up including serial stool guaiacs, reticulocyte count and iron studies. 5. Hypertension - Restart suitable outpatient antihypertensive drugs when clinically appropriate. Revise regimen to ensure [id number] excellent BP control and food counselor patient on the injurious effects of uncontrolled hypertension. Nonpharmacologic measures to control hypertension like weight loss , salt restriction and exercise discussed. Importance of adherence to treatment regimen and attainment of normotension emphasized. 6. DVT prophylaxis - Lovenox 40 mg SQ q 24 hours. 7. Advance directives - Full code
[2019-08-04] MEDS ORDERED: AZITHROMYCIN IVPB 500 MG/250 ML BAG IVPB ONE (21:15)
--- NOTE | 2019-08-04 21:30 | HP ---
CHIEF COMPLAINT: fever + chest tightness PCP:Osman Alves HISTORY OF PRESENT ILLNESS: 54 yo F PMH of RA, HTN, brain aneurysm ( s/p clipping), Substance abuse, presents to ED for 3 days of chest tightness, SOB, productive cough and fever. pt states that symptoms began 3 days ago and was trying supportive care without relief. pt states she has been using motrin for the fever. pt states that the chest tightness and cough are worse when she lays down. she states that when she measured her temp at home it was 102.1. pt also endorses diarrhea and nausea. pt states she last felt this way last time she had pneumonia. pt states she smokes approx 1 cigarette / day and has been using heroin this year ( although denies IV use ). denies recent travel or sick contacts. ER course was notable for: (1)CXR (2)empiric azithro + levaquin (3)trop neg x 2 Recent Travel: denies PAST MEDICAL HISTORY:RA, HTN, Substance abuse, brain aneurysm x 2 PAST SURGICAL HISTORY:brain aneurysm clipping, L knee surgery Social History: Smokin cigarette / day. > 30 yrs Alcohol: denies Drugs: heroin. past cocaine use . marijuana Allergies Penicillins Allergy (Verified 06/30/19 13:34) PASSED OUT HOME MEDICATIONS: Home Medications Medication Instructions Recorded Folic Acid 1 mg PO DAILY 03/08/17 Methotrexate Sodium [Methotrexate] 2.5 mg PO WEEKLY 03/08/17 Losartan Potassium 50 mg PO DAILY 06/30/19 REVIEW OF SYSTEMS CONSTITUTIONAL: Present: fever, chills Absent: diaphoresis, generalized weakness, malaise, loss of appetite, weight change HEENT: Present: nasal congestion Absent: rhinorrhea, throat pain, throat swelling, difficulty swallowing, mouth swelling, ear pain, eye pain, visual changes CARDIOVASCULAR: Prestent : chest tightness Absent: syncope, palpitations, irregular heart rate, lightheadedness, peripheral edema RESPIRATORY: Present: cough, SOB Absent: dyspnea with exertion, orthopnea, wheezing, stridor, hemoptysis GASTROINTESTINAL: Present: nausea , diarrhea Absent: abdominal pain, abdominal distension, vomiting, constipation, melena, hematochezia GENITOURINARY: Absent: dysuria, frequency, urgency, hesitancy, hematuria, flank pain, genital pain MUSCULOSKELETAL: Absent: myalgia, arthralgia, joint swelling, back pain, neck pain SKIN: Absent: rash, itching, pallor HEMATOLOGIC/IMMUNOLOGIC: Absent: easy bleeding, easy bruising, lymphadenopathy, frequent infections ENDOCRINE: Absent: unexplained weight gain, unexplained weight loss, heat intolerance, cold intolerance NEUROLOGIC: Absent: headache, focal weakness or paresthesias, dizziness, unsteady gait, seizure, mental status changes, bladder or bowel incontinence PSYCHIATRIC: Absent: anxiety, depression, suicidal or homicidal ideation, hallucinations. PHYSICAL EXAMINATION Vital Signs - 24 hr 08/04/19 08/04/19 16:03 18:42 Temperature 98.2 F 98.5 F Pulse Rate 100 H Pulse Rate [ 97 H Apical] Respiratory 19 19 Rate Blood Pressure 133/89 Blood Pressure 135/69 [Right Arm] O2 Sat by Pulse 97 98 Oximetry (%) GENERAL: Awake, alert, and fully oriented, in no acute distress. HEAD: Normal with no signs of trauma. EYES: Pupils equal, round and reactive to light, extraocular movements intact, sclera anicteric, conjunctiva clear. EARS, NOSE, THROAT: Ears normal, nares patent, oropharynx clear without exudates. Moist mucous membranes. NECK: Normal range of motion, supple without lymphadenopathy, JVD, or masses. LUNGS: Breath sounds equal, clear to auscultation bilaterally. No wheezes, and no crackles. No accessory muscle use. HEART: tachycardic and regular rhythm, normal S1 and S2 without murmur, rub or gallop. ABDOMEN: Soft, nontender, not distended, normoactive bowel sounds, no guarding, no rebound, no masses. No hepatomegaly or splenomegaly. MUSCULOSKELETAL: Normal range of motion at all joints. No bony deformities or tenderness. No CVA tenderness. UPPER EXTREMITIES: 2+ pulses, warm, well-perfused. No cyanosis. No clubbing. No peripheral edema. LOWER EXTREMITIES: 2+ pulses, warm, well-perfused. No calf tenderness. No peripheral edema. L LE circumference > R LE . NEUROLOGICAL: Cranial nerves II-XII intact. Normal speech. Normal gait. PSYCHIATRIC: Cooperative. Good eye contact. Appropriate mood and affect. SKIN: Warm, dry, normal turgor, no rashes or lesions noted, normal capillary refill. Laboratory Last Values WBC 11.3 K/mm3 (4.0-10.0) H 08/04/19 16:45 RBC 3.80 M/mm3 (3.60-5.2) 08/04/19 16:45 Hgb 10.7 GM/dL (10.7-15.3) 08/04/19 16:45 Hct 31.7 % (32.4-45.2) L 08/04/19 16:45 MCV 83.4 fl (80-96) 08/04/19 16:45 MCH 28.3 pg (25.7-33.7) 08/04/19 16:45 MCHC 33.9 g/dl (32.0-36.0) 08/04/19 16:45 RDW 16.0 % (11.6-15.6) H 08/04/19 16:45 Plt Count 390 K/MM3 (134-434) D 08/04/19 16:45 MPV 8.4 fl (7.5-11.1) 08/04/19 16:45 Absolute Neuts (auto) 8.3 K/mm3 (1.5-8.0) H 08/04/19 16:45 Neutrophils % 72.8 % (42.8-82.8) 08/04/19 16:45 Lymphocytes % 18.6 % (8-40) D 08/04/19 16:45 Monocytes % 4.5 % (3.8-10.2) 08/04/19 16:45 Eosinophils % 3.5 % (0-4.5) 08/04/19 16:45 Basophils % 0.6 % (0-2.0) 08/04/19 16:45 Nucleated RBC % 0 % (0-0) 08/04/19 16:45 Sodium 134 mmol/L (136-145) L 08/04/19 16:45 Potassium 4.5 mmol/L (3.5-5.1) 08/04/19 16:45 Chloride 101 mmol/L (98-107) 08/04/19 16:45 Carbon Dioxide 26 mmol/L (21-32) 08/04/19 16:45 Anion Gap 8 MMOL/L (8-16) 08/04/19 16:45 BUN 10.7 mg/dL (7-18) 08/04/19 16:45 Creatinine 0.9 mg/dL (0.55-1.3) 08/04/19 16:45 Est GFR (CKD-EPI)AfAm 84.01 08/04/19 16:45 Est GFR (CKD-EPI)NonAf 72.49 08/04/19 16:45 Random Glucose 110 mg/dL (74-106) H 08/04/19 16:45 Lactic Acid 1.5 mmol/L (0.4-2.0) 08/04/19 21:00 Calcium 9.5 mg/dL (8.5-10.1) 08/04/19 16:45 Total Bilirubin 0.8 mg/dL (0.2-1) 08/04/19 16:45 AST 100 U/L (15-37) H 08/04/19 16:45 ALT 103 U/L (13-61) H 08/04/19 16:45 Alkaline Phosphatase 518 U/L (45-117) H 08/04/19 16:45 Troponin I < 0.02 ng/ml (0.00-0.05) 08/04/19 21:00 Total Protein 7.6 g/dl (6.4-8.2) 08/04/19 16:45 Albumin 3.1 g/dl (3.4-5.0) L 08/04/19 16:45 Lipase 69 U/L (73-393) L 08/04/19 21:00 Urine Color Yellow 08/04/19 21:23 Urine Appearance Clear 08/04/19 21:23 Urine pH 6.5 (5.0-8.0) 08/04/19 21:23 Ur Specific [place] 1.004 (1.010-1.035) L 08/04/19 21:23 Urine Protein Negative (NEGATIVE) 08/04/19 21:23 Urine Glucose (UA) Negative (NEGATIVE) 08/04/19 21:23 Urine Ketones Negative (NEGATIVE) 08/04/19 21:23 Urine Blood 1+ (NEGATIVE) H 08/04/19 21:23 Urine Nitrite Negative (NEGATIVE) 08/04/19 21:23 Urine Bilirubin Negative (NEGATIVE) 08/04/19 21:23 Urine Urobilinogen 0.2 mg/dL (0.2-1.0) 08/04/19 21:23 Ur Leukocyte Esterase Negative (NEGATIVE) 08/04/19 21:23 Urine WBC (Auto) 0.6 /hpf (0-5) 08/04/19 21:23 Urine RBC (Auto) 3.0 /hpf (0-4) 08/04/19 21:23 Urine Casts (Auto) 1.86 /lpf (0-8) 08/04/19 21:23 U Epithel Cells (Auto) 0.7 /HPF (0-5/HPF) 08/04/19 21:23 Urine Bacteria (Auto) 7.7 /hpf (NEGATIVE) 08/04/19 21:23 Influenza A (Rapid) Negative (Negative) 08/04/19 17:32 Influenza B (Rapid) Negative (Negative) 08/04/19 17:32 CT abdomen: There are large gallstones without definite gallbladder inflammation or biliary duct dilation. 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 Normal unenhanced liver, pancreas, spleen, adrenal glands and kidneys. The stomach and abdominal small and large bowel are normal. There is no aortic aneurysm. There is no significant retroperitoneal lymphadenopathy CT chest: There is no aortic aneurysm. There is no significant mediastinal or hilar adenopathy.The heart size is normal. The trachea and bronchi are patent. There is no pleural effusion. There is a small pericardial effusion. Multifocal consolidations, predominating in the lower lobes is consistent with pneumonia. No evidence of emphysema. Please refer to separate report of CT and pelvis intra -abdominal findings ASSESSMENT/PLAN: 54 yo F PMH of RA, HTN, brain aneurysm ( s/p clipping), Substance abuse, presents to ED for 3 days of chest tightness, SOB, productive cough and fever. Admitted to medicine for pneumonia Community Acquired Pneumonia -Ct chest shows multifocal consolidations - empiric azithromycin, levaquin in ED . c/w azithromycin and levaquin -pending BCx, UCx, sputum culture - encourage po fluid hydration - lozenges for throat relief - influenza negative -pending legionella - pending c dif - HIV negative Transaminitis possibly 2/2 cholecystitis vs Methotrexate toxicity - Alk phos 518, AST 100, ALT 103 - Abdominal CT - continue to trend -lipase 69 - hold methotrexate 2/2 black box warning of hepatotoxicity HTN - continue current mgmt with metoprolol and amlodipine. will need to med rec RA - c/w prednisone - confirm w/ primary the reason for methotrexate, discuss alternatives F/E/N - monitor lytes - low sodium diet DVT ppx: heparin Dispo: admit to medicine Visit type - Emergency Visit Emergency Visit: Yes ED Registration Date: 08/04/19 Care time: The patient presented to the Emergency Department on the above date and was hospitalized for further evaluation of their emergent condition. - New Patient This patient is new to me today: Yes Date on this admission: 08/22/19 - Critical Care Critical Care patient: No ATTENDING PHYSICIAN STATEMENT I saw and evaluated the patient. I reviewed the resident's note and discussed the case with the resident. I agree with the resident's findings and plan as documented. SUBJECTIVE: OBJECTIVE: ASSESSMENT AND PLAN:
[2019-08-04 21:42] LABS: PH,URINE 6.5 (5.0-8.0); URINE APPEARANCE CLEAR; URINE BILIRUBIN NEGATIVE (NEGATIVE); URINE COLOR YELLOW; URINE GLUCOSE (UA) NEGATIVE (NEGATIVE); URINE KETONE NEGATIVE (NEGATIVE); URINE LEUK ESTERASE NEGATIVE (NEGATIVE); URINE NITRITE NEGATIVE (NEGATIVE); URINE PROTEIN NEGATIVE (NEGATIVE); URINE UROBILINOGEN 0.2 mg/dL (0.2-1.0)
[2019-08-04 21:49] LABS: LIPASE 69 U/L (73-393)
[2019-08-04 21:52] LABS: EPI CELLS 0.7 /HPF (0-5/HPF); HYALINE CASTS 1.86 /lpf (0-8); URINE BACTERIA 7.7 /hpf (NEGATIVE); URINE WBC 0.6 /hpf (0-5)
[2019-08-05 00:48] LABS: COCAINE, UR NEGATIVE ng/ml (CUTOFF=300); METHADONE, UR NEGATIVE ng/ml (CUTOFF=300); PHENCYCLIDINE,URINE NEGATIVE ng/ml (CUTOFF=25); URINE AMPHETAMINES NEGATIVE ng/ml (CUTOFF=500); URINE BARBITURATES NEGATIVE ng/ml (CUTOFF=200); URINE BENZODIAZEPINES NEGATIVE ng/ml (CUTOFF=200)
[2019-08-05 00:50] LABS: OPIATES, URI POSITIVE ng/ml (CUTOFF=300)
[2019-08-05 06:07] LABS: BASO % 0.4 % (0-2.0); HEMATOCRIT 29.7 % (32.4-45.2); HEMOGLOBIN 9.8 GM/dL (10.7-15.3); LYMPH % 18.5 % (8-40); MCH 27.7 pg (25.7-33.7); MCHC 33.1 g/dl (32.0-36.0); MEAN CELL VOLUME 83.6 fl (80-96); MEAN PLT VOLUME 7.9 fl (7.5-11.1); MONO % 6.6 % (3.8-10.2); NEUT % 69.5 % (42.8-82.8); PLATELET COUNT 310 K/MM3 (134-434); RBC 3.55 M/mm3 (3.60-5.2); RDW 15.9 % (11.6-15.6); WHITE BLOOD COUNT 7.9 K/mm3 (4.0-10.0)
[2019-08-05 06:43] LABS: ALBUMIN 2.4 g/dl (3.4-5.0); BILIRUBIN,TOTAL 0.4 mg/dL (0.2-1); BLOOD UREA NITROGEN 9.8 mg/dL (7-18); CALCIUM 8.8 mg/dL (8.5-10.1); CREATININE 0.6 mg/dL (0.55-1.3); MAGNESIUM 2.5 mg/dL (1.8-2.4); PHOSPHOROUS 3.8 mg/dL (2.5-4.9); POTASSIUM 3.1 mmol/L (3.5-5.1); TOT PROT 5.9 g/dl (6.4-8.2)
[2019-08-05] MEDS ORDERED: POTASSIUM CHLORIDE TABS 20 MEQ TABLET.ER (FP) PO ONE ×4 (07:45→15:29)
[2019-08-05] MEDS ORDERED: ALBUTEROL SO4 2.5/IPRATROPIUM 0.5 INH SOL 3 ML VIAL.NEB. NEB ONE ×4 (08:43→21:41)
[2019-08-05] MEDS ORDERED: AZITHROMYCIN IVPB 250 MG in DEXTROSE 5%-WATER - 250 ML IVPB SCH (10:00)
[2019-08-05] MEDS ORDERED: ALBUTEROL SO4 0.083% IH SOL 2.5 MG/3 ML VIAL.NEB. NEB PRN (10:22)
[2019-08-05] MEDS ORDERED: IBUPROFEN 400 MG TABLET (FP) PO ONE ×2 (10:48→23:17)
[2019-08-05] MEDS: IBUPROFEN 400 MG TABLET (FP) PO PRN ×2 (10:50→23:23)
--- NOTE | 2019-08-05 10:52 | EKG ---
Test Reason : Blood Pressure : / mmHG Vent. Rate : 093 BPM Atrial Rate : 093 BPM P-R Int : 148 ms QRS Dur : 104 ms QT Int : 386 ms P-R-T Axes : 061 029 049 degrees QTc Int : 479 ms NORMAL SINUS RHYTHM POSSIBLE LEFT ATRIAL ENLARGEMENT INCOMPLETE RBBB WHEN COMPARED WITH ECG OF 08-MAR-2017 14:39, NO SIGNIFICANT CHANGE WAS FOUND Confirmed by DAVID KILLIAN MD ([id number]) on 08/05/2019 10:51:31 AM Referred By: Confirmed By:DAVID KILLIAN MD
[2019-08-05] MEDS: ALBUTEROL SO4 2.5/IPRATROPIUM 0.5 INH SOL 3 ML VIAL.NEB. NEB SCH ×3 (12:00→20:33)
--- NOTE | 2019-08-05 13:50 | PN ---
Physical Exam: SUBJECTIVE: Patient seen and examined. Complained of chest tightness similar to previous night. Was given neb treatment with improvement. Ordered again with improvement of patients symptoms. States she uses Heroin occasionally, only a few times a month. Last use was 4 days ago when she used one bag worth. She denies any IV use ever. States she only inhales. Denies ever being on Methadone or Suboxone. Denies any other illicit drug use. OBJECTIVE: Vital Signs Period Temp Pulse Resp BP Sys/Amado Pulse Ox Last 24 Hr 97.8 F-98.7 F 78-100 16-19 108-144/69-89 94-98 GENERAL: The patient is awake, alert, and fully oriented, in no acute distress. HEAD: Normal with no signs of trauma. EYES: PERRL, EOMI, no scleral icterus ENT: MMM NECK: Trachea midline, supple LUNGS: mild inspiratory and expiratory wheezing, no crackles. no accessory muscle use HEART: RRR, normal S1 and S2, no murmur noted ABDOMEN: Soft, nontender, nondistended, normoactive bowel sounds, no guarding EXTREMITIES: 2+ pulses, warm, well-perfused, no edema. NEUROLOGICAL: normal speech, normal gait. PSYCH: appropriate mood and affect SKIN: Warm, dry, normal turgor Laboratory Results - last 24 hr 08/04/19 08/04/19 08/04/19 16:45 16:45 16:45 WBC 11.3 H RBC 3.80 Hgb 10.7 Hct 31.7 L MCV 83.4 MCH 28.3 MCHC 33.9 RDW 16.0 H Plt Count 390 D MPV 8.4 Absolute Neuts (auto) 8.3 H Neutrophils % 72.8 Lymphocytes % 18.6 D Monocytes % 4.5 Eosinophils % 3.5 Basophils % 0.6 Nucleated RBC % 0 Sodium 134 L Potassium 4.5 Chloride 101 Carbon Dioxide 26 Anion Gap 8 BUN 10.7 Creatinine 0.9 Est GFR (CKD-EPI)AfAm 84.01 Est GFR (CKD-EPI)NonAf 72.49 Random Glucose 110 H Lactic Acid Calcium 9.5 Phosphorus Magnesium Total Bilirubin 0.8 AST 100 H ALT 103 H Alkaline Phosphatase 518 H Troponin I < 0.02 Total Protein 7.6 Albumin 3.1 L Lipase Urine Color Urine Appearance Urine pH Ur Specific [place] Urine Protein Urine Glucose (UA) Urine Ketones Urine Blood Urine Nitrite Urine Bilirubin Urine Urobilinogen Ur Leukocyte Esterase Urine WBC (Auto) Urine RBC (Auto) Urine Casts (Auto) U Epithel Cells (Auto) Urine Bacteria (Auto) Opiates Screen Methadone Screen Barbiturate Screen Phencyclidine Screen Ur Amphetamines Screen MDMA (Ecstasy) Screen Benzodiazepines Screen Cocaine Screen U Marijuana (THC) Screen HIV 1&2 Antibody Screen HIV P24 Antigen Influenza A (Rapid) Influenza B (Rapid) 08/04/19 08/04/19 08/04/19 17:32 21:00 21:00 WBC RBC Hgb Hct MCV MCH MCHC RDW Plt Count MPV Absolute Neuts (auto) Neutrophils % Lymphocytes % Monocytes % Eosinophils % Basophils % Nucleated RBC % Sodium Potassium Chloride Carbon Dioxide Anion Gap BUN Creatinine Est GFR (CKD-EPI)AfAm Est GFR (CKD-EPI)NonAf Random Glucose Lactic Acid 1.5 Calcium Phosphorus Magnesium Total Bilirubin AST ALT Alkaline Phosphatase Troponin I < 0.02 Total Protein Albumin Lipase 69 L Urine Color Urine Appearance Urine pH Ur Specific [place] Urine Protein Urine Glucose (UA) Urine Ketones Urine Blood Urine Nitrite Urine Bilirubin Urine Urobilinogen Ur Leukocyte Esterase Urine WBC (Auto) Urine RBC (Auto) Urine Casts (Auto) U Epithel Cells (Auto) Urine Bacteria (Auto) Opiates Screen Methadone Screen Barbiturate Screen Phencyclidine Screen Ur Amphetamines Screen MDMA (Ecstasy) Screen Benzodiazepines Screen Cocaine Screen U Marijuana (THC) Screen HIV 1&2 Antibody Screen HIV P24 Antigen Influenza A (Rapid) Negative Influenza B (Rapid) Negative 08/04/19 08/04/19 08/05/19 21:23 23:30 00:21 WBC RBC Hgb Hct MCV MCH MCHC RDW Plt Count MPV Absolute Neuts (auto) Neutrophils % Lymphocytes % Monocytes % Eosinophils % Basophils % Nucleated RBC % Sodium Potassium Chloride Carbon Dioxide Anion Gap BUN Creatinine Est GFR (CKD-EPI)AfAm Est GFR (CKD-EPI)NonAf Random Glucose Lactic Acid Calcium Phosphorus Magnesium Total Bilirubin AST ALT Alkaline Phosphatase Troponin I Total Protein Albumin Lipase Urine Color Yellow Urine Appearance Clear Urine pH 6.5 Ur Specific [place] 1.004 L Urine Protein Negative Urine Glucose (UA) Negative Urine Ketones Negative Urine Blood 1+ H Urine Nitrite Negative Urine Bilirubin Negative Urine Urobilinogen 0.2 Ur Leukocyte Esterase Negative Urine WBC (Auto) 0.6 Urine RBC (Auto) 3.0 Urine Casts (Auto) 1.86 U Epithel Cells (Auto) 0.7 Urine Bacteria (Auto) 7.7 Opiates Screen Positive A* Methadone Screen Negative Barbiturate Screen Negative Phencyclidine Screen Negative Ur Amphetamines Screen Negative MDMA (Ecstasy) Screen Negative Benzodiazepines Screen Negative Cocaine Screen Negative U Marijuana (THC) Screen Negative HIV 1&2 Antibody Screen Negative HIV P24 Antigen Negative Influenza A (Rapid) Influenza B (Rapid) 08/05/19 08/05/19 08/05/19 00:28 05:25 05:25 WBC 7.9 RBC 3.55 L Hgb 9.8 L Hct 29.7 L MCV 83.6 MCH 27.7 MCHC 33.1 RDW 15.9 H Plt Count 310 D MPV 7.9 Absolute Neuts (auto) 5.5 Neutrophils % 69.5 Lymphocytes % 18.5 Monocytes % 6.6 Eosinophils % 5.0 H Basophils % 0.4 Nucleated RBC % 0 Sodium 147 H Potassium 3.1 L Chloride 114 H Carbon Dioxide 25 Anion Gap 8 BUN 9.8 Creatinine 0.6 Est GFR (CKD-EPI)AfAm 119.77 Est GFR (CKD-EPI)NonAf 103.34 Random Glucose 89 Lactic Acid 0.7 Calcium 8.8 Phosphorus 3.8 Magnesium 2.5 H Total Bilirubin 0.4 AST 39 H ALT 69 H Alkaline Phosphatase 444 H Troponin I Total Protein 5.9 L Albumin 2.4 L Lipase Urine Color Urine Appearance Urine pH Ur Specific [place] Urine Protein Urine Glucose (UA) Urine Ketones Urine Blood Urine Nitrite Urine Bilirubin Urine Urobilinogen Ur Leukocyte Esterase Urine WBC (Auto) Urine RBC (Auto) Urine Casts (Auto) U Epithel Cells (Auto) Urine Bacteria (Auto) Opiates Screen Methadone Screen Barbiturate Screen Phencyclidine Screen Ur Amphetamines Screen MDMA (Ecstasy) Screen Benzodiazepines Screen Cocaine Screen U Marijuana (THC) Screen HIV 1&2 Antibody Screen HIV P24 Antigen Influenza A (Rapid) Influenza B (Rapid) Active Medications Generic Name Dose Route Start Last Admin Trade Name Freq PRN Reason Stop Dose Admin Albuterol Sulfate 1 amp 08/05/19 10:22 Ventolin 0.083% Nebulizer Soln - NEB Q6H PRN SHORT OF BREATH/WHEEZING Albuterol/Ipratropium 1 amp 08/05/19 12:00 Duoneb - NEB RQID RADHA Benzocaine/Menthol 1 each 08/04/19 22:07 Cepacol Lozenge - MM PRN PRN SORE THROAT Heparin Sodium (Porcine) 5,000 unit 08/05/19 14:00 Heparin - SQ TID RADHA Levofloxacin 750 mg in 150 mls @ 100 mls/hr 08/05/19 10:00 08/05/19 09:15 Levaquin 750 Mg Premixed Ivpb - IVPB 100 mls/hr DAILY RADHA Administration Protocol Ibuprofen 400 mg 08/04/19 23:59 08/05/19 10:50 Motrin - PO 400 mg Q6H PRN Administration FEVER Potassium Chloride 40 meq 08/05/19 14:00 K-Dur - PO 08/05/19 14:01 ONCE ONE ASSESSMENT/PLAN: 54 y/o/f with PMHx of RA, HTN, brain aneurysm (s/p clipping), Substance abuse, presents to ED for 3 days of chest tightness, SOB, productive cough and fever. Admitted to medicine for pneumonia. #Community Acquired Pneumonia - Ct chest shows multifocal consolidations, left greater than right, suspicious for pneumonia - empiric azithromycin, levaquin x1 in ED - Continue Levaquin - pending BCx, UCx - sputum cx negative - lozenges for throat relief - influenza negative - pending legionella - pending c dif - HIV negative #Transaminitis possibly 2/2 cholecystitis vs Methotrexate toxicity - Alk phos 518, AST 100, ALT 103 on admission - AST/ALT improved to 39/69. Alk phos 444 - Abdominal CT - showing cholelithiasis but no acute pathology - continue to trend - lipase 69 - hold methotrexate 2/2 black box warning of hepatotoxicity #Splenic artery Aneurysm - there is a 2.8cm calcified splenic artery aneurysm within the splenic hilum - Vascular surgery consulted, appreciate recs - patient states she has been told she has an aneurysm in the past. will attempt to get records from PCP #HTN - continue home Amlodipine dose #RA - confirm w/ primary the reason for methotrexate, discuss alternatives - holding prednison, Methotrexate #Prophylaxis - Heparin #FEN - monitor and replete lytes as needed - low sodium diet - encourage PO fluid intake #Disposition - admitted to med surg Visit type - Emergency Visit Emergency Visit: Yes ED Registration Date: 08/04/19 Care time: The patient presented to the Emergency Department on the above date and was hospitalized for further evaluation of their emergent condition. - New Patient This patient is new to me today: Yes Date on this admission: 08/05/19 - Critical Care Critical Care patient: No ATTENDING PHYSICIAN STATEMENT I saw and evaluated the patient. I reviewed the resident's note and discussed the case with the resident. I agree with the resident's findings and plan as documented. SUBJECTIVE: OBJECTIVE: ASSESSMENT AND PLAN:
[2019-08-05] MEDS: HEPARIN NA (PORCINE) 5,000 UNITS/ML 1ML VIAL SQ SCH ×2 (15:00→23:00)
[2019-08-05] MEDS: BENZOCAINE/MENTH/CETYLPYRD CL 1 EACH LOZENGE MM PRN (15:38)
--- NOTE | 2019-08-05 17:04 | PN ---
Teaching Attending Note Name of Resident: Jeremiah Wheeler ATTENDING PHYSICIAN STATEMENT I saw and evaluated the patient. I reviewed the resident's note and discussed the case with the resident. I agree with the resident's findings and plan as documented. SUBJECTIVE: SOB/cough improving. No fever/chills. NO nausea/vomiting. OBJECTIVE: Afebrile, Hemodynamically Stable. Last Vital Signs Temp Pulse Resp BP Pulse Ox 98.7 F 90 16 135/86 96 08/05/19 08:21 08/05/19 08:21 08/05/19 08:21 08/05/19 08:21 08/05/19 08:21 HEENT- Atraumatic, Normocephalic. Heart - S1, S2, RRR Lungs - good air entry bilaterally Abdomen - soft, non-tender. Bowel sounds normal. Extremities - no edema, no calf tenderness. Laboratory Results - last 24 hr 08/04/19 08/04/19 08/04/19 16:45 16:45 16:45 WBC 11.3 H RBC 3.80 Hgb 10.7 Hct 31.7 L MCV 83.4 MCH 28.3 MCHC 33.9 RDW 16.0 H Plt Count 390 D MPV 8.4 Absolute Neuts (auto) 8.3 H Neutrophils % 72.8 Lymphocytes % 18.6 D Monocytes % 4.5 Eosinophils % 3.5 Basophils % 0.6 Nucleated RBC % 0 Sodium 134 L Potassium 4.5 Chloride 101 Carbon Dioxide 26 Anion Gap 8 BUN 10.7 Creatinine 0.9 Est GFR (CKD-EPI)AfAm 84.01 Est GFR (CKD-EPI)NonAf 72.49 Random Glucose 110 H Lactic Acid Calcium 9.5 Phosphorus Magnesium Total Bilirubin 0.8 AST 100 H ALT 103 H Alkaline Phosphatase 518 H Troponin I < 0.02 Total Protein 7.6 Albumin 3.1 L Lipase Urine Color Urine Appearance Urine pH Ur Specific [place] Urine Protein Urine Glucose (UA) Urine Ketones Urine Blood Urine Nitrite Urine Bilirubin Urine Urobilinogen Ur Leukocyte Esterase Urine WBC (Auto) Urine RBC (Auto) Urine Casts (Auto) U Epithel Cells (Auto) Urine Bacteria (Auto) Opiates Screen Methadone Screen Barbiturate Screen Phencyclidine Screen Ur Amphetamines Screen MDMA (Ecstasy) Screen Benzodiazepines Screen Cocaine Screen U Marijuana (THC) Screen HIV 1&2 Antibody Screen HIV P24 Antigen Influenza A (Rapid) Influenza B (Rapid) 08/04/19 08/04/19 08/04/19 17:32 21:00 21:00 WBC RBC Hgb Hct MCV MCH MCHC RDW Plt Count MPV Absolute Neuts (auto) Neutrophils % Lymphocytes % Monocytes % Eosinophils % Basophils % Nucleated RBC % Sodium Potassium Chloride Carbon Dioxide Anion Gap BUN Creatinine Est GFR (CKD-EPI)AfAm Est GFR (CKD-EPI)NonAf Random Glucose Lactic Acid 1.5 Calcium Phosphorus Magnesium Total Bilirubin AST ALT Alkaline Phosphatase Troponin I < 0.02 Total Protein Albumin Lipase 69 L Urine Color Urine Appearance Urine pH Ur Specific [place] Urine Protein Urine Glucose (UA) Urine Ketones Urine Blood Urine Nitrite Urine Bilirubin Urine Urobilinogen Ur Leukocyte Esterase Urine WBC (Auto) Urine RBC (Auto) Urine Casts (Auto) U Epithel Cells (Auto) Urine Bacteria (Auto) Opiates Screen Methadone Screen Barbiturate Screen Phencyclidine Screen Ur Amphetamines Screen MDMA (Ecstasy) Screen Benzodiazepines Screen Cocaine Screen U Marijuana (THC) Screen HIV 1&2 Antibody Screen HIV P24 Antigen Influenza A (Rapid) Negative Influenza B (Rapid) Negative 08/04/19 08/04/19 08/05/19 21:23 23:30 00:21 WBC RBC Hgb Hct MCV MCH MCHC RDW Plt Count MPV Absolute Neuts (auto) Neutrophils % Lymphocytes % Monocytes % Eosinophils % Basophils % Nucleated RBC % Sodium Potassium Chloride Carbon Dioxide Anion Gap BUN Creatinine Est GFR (CKD-EPI)AfAm Est GFR (CKD-EPI)NonAf Random Glucose Lactic Acid Calcium Phosphorus Magnesium Total Bilirubin AST ALT Alkaline Phosphatase Troponin I Total Protein Albumin Lipase Urine Color Yellow Urine Appearance Clear Urine pH 6.5 Ur Specific [place] 1.004 L Urine Protein Negative Urine Glucose (UA) Negative Urine Ketones Negative Urine Blood 1+ H Urine Nitrite Negative Urine Bilirubin Negative Urine Urobilinogen 0.2 Ur Leukocyte Esterase Negative Urine WBC (Auto) 0.6 Urine RBC (Auto) 3.0 Urine Casts (Auto) 1.86 U Epithel Cells (Auto) 0.7 Urine Bacteria (Auto) 7.7 Opiates Screen Positive A* Methadone Screen Negative Barbiturate Screen Negative Phencyclidine Screen Negative Ur Amphetamines Screen Negative MDMA (Ecstasy) Screen Negative Benzodiazepines Screen Negative Cocaine Screen Negative U Marijuana (THC) Screen Negative HIV 1&2 Antibody Screen Negative HIV P24 Antigen Negative Influenza A (Rapid) Influenza B (Rapid) 12/20/19 12/20/19 12/20/19 00:28 05:25 05:25 WBC 7.9 RBC 3.55 L Hgb 9.8 L Hct 29.7 L MCV 83.6 MCH 27.7 MCHC 33.1 RDW 15.9 H Plt Count 310 D MPV 7.9 Absolute Neuts (auto) 5.5 Neutrophils % 69.5 Lymphocytes % 18.5 Monocytes % 6.6 Eosinophils % 5.0 H Basophils % 0.4 Nucleated RBC % 0 Sodium 147 H Potassium 3.1 L Chloride 114 H Carbon Dioxide 25 Anion Gap 8 BUN 9.8 Creatinine 0.6 Est GFR (CKD-EPI)AfAm 119.77 Est GFR (CKD-EPI)NonAf 103.34 Random Glucose 89 Lactic Acid 0.7 Calcium 8.8 Phosphorus 3.8 Magnesium 2.5 H Total Bilirubin 0.4 AST 39 H ALT 69 H Alkaline Phosphatase 444 H Troponin I Total Protein 5.9 L Albumin 2.4 L Lipase Urine Color Urine Appearance Urine pH Ur Specific [place] Urine Protein Urine Glucose (UA) Urine Ketones Urine Blood Urine Nitrite Urine Bilirubin Urine Urobilinogen Ur Leukocyte Esterase Urine WBC (Auto) Urine RBC (Auto) Urine Casts (Auto) U Epithel Cells (Auto) Urine Bacteria (Auto) Opiates Screen Methadone Screen Barbiturate Screen Phencyclidine Screen Ur Amphetamines Screen MDMA (Ecstasy) Screen Benzodiazepines Screen Cocaine Screen U Marijuana (THC) Screen HIV 1&2 Antibody Screen HIV P24 Antigen Influenza A (Rapid) Influenza B (Rapid) Current Medications Generic Name Dose Route Start Last Admin Trade Name Freq PRN Reason Stop Dose Admin Albuterol Sulfate 1 amp 08/05/19 10:22 Ventolin 0.083% Nebulizer Soln - NEB Q6H PRN SHORT OF BREATH/WHEEZING Albuterol/Ipratropium 1 amp 08/05/19 12:00 08/05/19 12:00 Duoneb - NEB 1 amp RQID RADHA Administration Amlodipine Besylate 5 mg 08/06/19 10:00 Norvasc - PO DAILY RADHA Benzocaine/Menthol 1 each 08/04/19 22:07 08/05/19 15:38 Cepacol Lozenge - MM 1 each PRN PRN Administration SORE THROAT Heparin Sodium (Porcine) 5,000 unit 08/05/19 14:00 08/05/19 15:00 Heparin - SQ 5,000 unit TID RADHA Administration Levofloxacin 750 mg in 150 mls @ 100 mls/hr 08/05/19 10:00 08/05/19 09:15 Levaquin 750 Mg Premixed Ivpb - IVPB 100 mls/hr DAILY RADHA Administration Protocol Ibuprofen 400 mg 08/04/19 23:59 08/05/19 10:50 Motrin - PO 400 mg Q6H PRN Administration FEVER Home Medications Medication Instructions Recorded Methotrexate Sodium [Methotrexate] 2.5 mg PO WEEKLY 03/08/17 Amlodipine Besylate [Norvasc -] 5 mg PO DAILY 08/05/19 Oxycodone HCl/Acetaminophen 10 - 325 mg PO QID 08/05/19 [Percocet 10-325 mg Tablet] predniSONE [Deltasone -] 5 mg PO DAILY 08/05/19 ASSESSMENT AND PLAN: 54 year old female with history of RA, HTN, Brain Aneurysm (s/p clipping), Polysubstance Abuse (tobacco, inhaled heroin), presented with 3 day Hx of increasing SOB/cough/fever/fever at home reported [place] 102. CT C/A/P - Multifocal Pneumonia, Large gallstones without signs of cholecystitis or biliary dilatation. 2.8cm splenic artery aneurysm. 1. Community Acquired Aneurysm Multifocal and Bilateral on CT Chest Afebrile, Hemodynamically Stable. Blood Cx/Urine leg pending. Will treat with Levofloxacin, Bronchodilator Nebs. 2. Elevated Transaminases - improving ? sec to Methotrexate. CT A/P - shows hepatomegaly/fatty infiltrate. 3. HTN - continue Amlodipine. 4. RA - continue daily Prednisone and MTX weekly. 5. Hypokalemia - repleted. 6. Splenic Artery aneurysm 2.8cm, incidental finding. Will discuss with Vascular Sx re: appropriate follow up. DVT Px - Heparin SQ
[2019-08-05] MEDS ORDERED: HEPARIN NA (PORCINE) 5,000 UNITS/ML 1ML VIAL ONE (21:41)
[2019-08-06] MEDS ORDERED: oxyCODONE HCL 5 MG TABLET PO ONE (01:17)
[2019-08-06] MEDS ORDERED: ACETAMINOPHEN 325 MG TABLET (FP) PO ONE (01:18)
[2019-08-06] MEDS: HEPARIN NA (PORCINE) 5,000 UNITS/ML 1ML VIAL SQ SCH ×3 (06:04→14:32)
[2019-08-06] MEDS: BENZOCAINE/MENTH/CETYLPYRD CL 1 EACH LOZENGE MM PRN (06:06)
[2019-08-06] MEDS ORDERED: PT OWN MED DRAWER 7, Y5N ONE (06:19)
[2019-08-06 07:00] VITALS: BMI 23.1
[2019-08-06 07:36] LABS: HEMATOCRIT 29.4 % (32.4-45.2); HEMOGLOBIN 9.8 GM/dL (10.7-15.3); MCH 27.8 pg (25.7-33.7); MCHC 33.3 g/dl (32.0-36.0); MEAN CELL VOLUME 83.4 fl (80-96); PLATELET COUNT 397 K/MM3 (134-434); RBC 3.53 M/mm3 (3.60-5.2); RDW 16.2 % (11.6-15.6); WHITE BLOOD COUNT 5.3 K/mm3 (4.0-10.0)
[2019-08-06] MEDS: ALBUTEROL SO4 2.5/IPRATROPIUM 0.5 INH SOL 3 ML VIAL.NEB. NEB SCH ×3 (08:01→15:45)
[2019-08-06 08:07] LABS: ALBUMIN 2.7 g/dl (3.4-5.0); BILIRUBIN,TOTAL 0.2 mg/dL (0.2-1); BLOOD UREA NITROGEN 5.8 mg/dL (7-18); CALCIUM 9.4 mg/dL (8.5-10.1); CREATININE 0.6 mg/dL (0.55-1.3); MAGNESIUM 2.3 mg/dL (1.8-2.4); POTASSIUM 3.5 mmol/L (3.5-5.1); TOT PROT 6.6 g/dl (6.4-8.2)
[2019-08-06] MEDS ORDERED: amLODIPine BESYLATE 5 MG TABLET (FP) PO SCH (10:00)
[2019-08-06] MEDS ORDERED: FLU VACCINE QUAD 60 MCG/0.5 ML (MDV 19-20) IM ONE (10:00)
--- NOTE | 2019-08-06 11:04 | PN ---
Teaching Attending Note Name of Resident: Radha Barajas ATTENDING PHYSICIAN STATEMENT I saw and evaluated the patient. I reviewed the resident's note and discussed the case with the resident. I agree with the resident's findings and plan as documented. SUBJECTIVE: SOB/cough improving. No fever/chills. No nausea/vomiting. OBJECTIVE: Afebrile, Hemodynamically Stable. anxious, slightly jittery. Last Vital Signs Temp Pulse Resp BP Pulse Ox 98.2 F 82 18 140/77 98 08/06/19 09:00 08/06/19 09:00 08/06/19 09:00 08/06/19 09:00 08/06/19 09:00 Heart - S1, S2, RRR Lungs - good air entry bilaterally Abdomen - soft, non-tender. Bowel sounds normal. Extremities - no edema, no calf tenderness. rheumatoid Arthritic deformities fingers bilateral UEs. Laboratory Results - last 24 hr 08/05/19 08/05/19 08/06/19 00:50 00:50 06:40 WBC 5.3 RBC 3.53 L Hgb 9.8 L Hct 29.4 L MCV 83.4 MCH 27.8 MCHC 33.3 RDW 16.2 H Plt Count 397 D MPV 8.0 Sodium Potassium Chloride Carbon Dioxide Anion Gap BUN Creatinine Est GFR (CKD-EPI)AfAm Est GFR (CKD-EPI)NonAf Random Glucose Calcium Magnesium Total Bilirubin AST ALT Alkaline Phosphatase Total Protein Albumin Hep A IgM Ab Confirm Negative Hep Bs Antigen Negative Hep B Core IgM Ab Negative Hepatitis C Ab (EIA) <0.1 HIV 1&2 Ag/Ab, 4th Gen Non reactive 08/06/19 06:40 WBC RBC Hgb Hct MCV MCH MCHC RDW Plt Count MPV Sodium 146 H Potassium 3.5 Chloride 113 H Carbon Dioxide 23 Anion Gap 10 BUN 5.8 L Creatinine 0.6 Est GFR (CKD-EPI)AfAm 119.77 Est GFR (CKD-EPI)NonAf 103.34 Random Glucose 108 H Calcium 9.4 Magnesium 2.3 Total Bilirubin 0.2 AST 36 ALT 62 H Alkaline Phosphatase 464 H Total Protein 6.6 Albumin 2.7 L Hep A IgM Ab Confirm Hep Bs Antigen Hep B Core IgM Ab Hepatitis C Ab (EIA) HIV 1&2 Ag/Ab, 4th Gen Current Medications Generic Name Dose Route Start Last Admin Trade Name Freq PRN Reason Stop Dose Admin Albuterol Sulfate 1 amp 08/05/19 10:22 Ventolin 0.083% Nebulizer Soln - NEB Q6H PRN SHORT OF BREATH/WHEEZING Albuterol/Ipratropium 1 amp 08/05/19 12:00 08/06/19 08:01 Duoneb - NEB 1 amp RQID RADHA Administration Amlodipine Besylate 5 mg 08/06/19 10:00 08/06/19 09:34 Norvasc - PO 5 mg DAILY RADHA Administration Benzocaine/Menthol 1 each 08/04/19 22:07 08/06/19 06:06 Cepacol Lozenge - MM 1 each PRN PRN Administration SORE THROAT Heparin Sodium (Porcine) 5,000 unit 08/05/19 14:00 08/06/19 06:49 Heparin - SQ Not Given TID RADHA Levofloxacin 750 mg in 150 mls @ 100 mls/hr 08/05/19 10:00 08/06/19 09:34 Levaquin 750 Mg Premixed Ivpb - IVPB 100 mls/hr DAILY RADHA Administration Protocol Ibuprofen 400 mg 08/04/19 23:59 08/05/19 23:23 Motrin - PO 400 mg Q6H PRN Administration FEVER Home Medications Medication Instructions Recorded Methotrexate Sodium [Methotrexate] 2.5 mg PO WEEKLY 03/08/17 Amlodipine Besylate [Norvasc -] 5 mg PO DAILY 08/05/19 Oxycodone HCl/Acetaminophen 10 - 325 mg PO QID 08/05/19 [Percocet 10-325 mg Tablet] predniSONE [Deltasone -] 5 mg PO DAILY 08/05/19 ASSESSMENT AND PLAN: 54 year old female with history of RA, HTN, Brain Aneurysm (s/p clipping), Polysubstance Abuse (tobacco, inhaled heroin), presented with 3 day Hx of increasing SOB/cough/fever/fever at home reported [place] 102. CT C/A/P - Multifocal Pneumonia, Large gallstones without signs of cholecystitis or biliary dilatation. 2.8cm splenic artery aneurysm. 1. Community Acquired Pneumonia Multifocal and Bilateral on CT Chest Afebrile, Hemodynamically Stable. Blood Cx/Urine leg pending. Continue Levofloxacin, Bronchodilator Nebs. To complete 7 day course total of Abx. 2. Elevated Transaminases - improving ? sec to Methotrexate. CT A/P - shows hepatomegaly/fatty infiltrate. 3. HTN - continue Amlodipine. 4. RA - continue daily Prednisone and MTX weekly. 5. Hypokalemia - repleted. 6. Splenic Artery aneurysm 2.8cm, incidental finding. Discussed with Vascular Sx who recommeded CT A/P with contrast. Study complete, awaiting report and Vascular Sx opinion re: further Ix/?Intervention./ DVT Px - Heparin SQ
[2019-08-06] MEDS ORDERED: POTASSIUM CHLORIDE TABS 20 MEQ TABLET.ER (FP) PO ONE (11:28)
[2019-08-06] MEDS ORDERED: oxyCODONE HCL 5 MG TABLET PO PRN (11:34)
[2019-08-06] MEDS ORDERED: ACETAMINOPHEN 325 MG TABLET (FP) PO PRN (11:35)
--- NOTE | 2019-08-06 12:47 | CONSULT ---
Consult - History of Present Illness History of Present Illness: 54 year old woman admitted with cough found on CT scan to have splenic artery aneurysm 2.8 cm. She was told of aneurysm in her stomach several years ago but does not recall a size. She denies abdominal pain. She has a history of cerebral bleed from aneurysm which required surgical clipping. - History Source History Provided By: Patient, Medical Record Limitations to Obtaining History: No Limitations - Past Medical History Cardio/Vascular: Yes: HTN ...LMP: 06/30/17 Rheumatology: Yes: Rheumatoid Arthritis - Past Surgical History Past Surgical History: Yes: Craniotomy, Joint Replacement (right knee) - Alcohol/Substance Use Hx Alcohol Use: Yes (SOCIAL) History of Substance Use: reports: Prescription - Smoking History Smoking history: Current every day smoker Have you smoked in the past 12 months: Yes Aproximately how many cigarettes per day: 1 - Social History ADL: Independent History of Recent Travel: No Home Medications - Allergies Allergies/Adverse Reactions: Allergies Allergy/AdvReac Type Severity Reaction Status Date / Time Penicillins Allergy Verified 06/30/19 13:34 - Home Medications Home Medications: Ambulatory Orders Methotrexate Sodium [Methotrexate] 2.5 mg PO WEEKLY 03/08/17 Amlodipine Besylate [Norvasc -] 5 mg PO DAILY 08/05/19 Oxycodone HCl/Acetaminophen [Percocet 10-325 mg Tablet] 10 - 325 mg PO QID 08/05 predniSONE [Deltasone -] 5 mg PO DAILY 08/05/19 Physical Exam Vital Signs: Vital Signs Temperature 98.2 F 08/06/19 09:00 Pulse Rate 82 08/06/19 09:00 Respiratory Rate 18 08/06/19 09:00 Blood Pressure 140/77 08/06/19 09:00 O2 Sat by Pulse Oximetry (%) 98 08/06/19 09:00 Constitutional: Yes: No Distress Eyes: Yes: WNL HENT: Yes: WNL, Nasal Congestion Neck: Yes: WNL Cardiovascular: Yes: Regular Rate and Rhythm Respiratory: Yes: Regular Gastrointestinal: Yes: Soft. No: Palpable Mass, Pulsatile Mass, Tenderness Labs: CBC, BMP 08/06/19 06:40 08/06/19 06:40 Imaging - Results Cat Scan: Image Reviewed (2.8 cm distal splenic artery aneurysm near hilum) Problem List - Problems (1) Splenic artery aneurysm Assessment/Plan: Presumably she has had this aneurysm for several years and it has grown to 2.8 cm. In general, ALIYAH less than 2 cm are observed and when they reach 3 cm they should be treated. Risk of rupture is greater in and non-calcified aneyursms. Endovascular treatment with coils or covered stents is preferred. If the aneurysm is not amenable to this, splenectomy may be needed. I have reviewed the need for elective intervention with the patient. I will schedule after Aug 17. Problems reviewed: Yes Code(s): I72.8 - ANEURYSM OF OTHER SPECIFIED ARTERIES
--- NOTE | 2019-08-06 16:51 | DS ---
Physical Exam: SUBJECTIVE: Patient seen and examined. No acute events overnight. States her breathing feels better today compared to yesterday. Denies chest pain, abd pain , SOB, fever, chills. OBJECTIVE: Vital Signs Period Temp Pulse Resp BP Sys/Amado Pulse Ox Last 24 Hr 98.1 F-98.5 F 82-100 18-18 132-145/77-92 97-98 PHYSICAL EXAM GENERAL: The patient is awake, alert, and fully oriented, in no acute distress. HEAD: Normal with no signs of trauma. EYES: PERRL, EOMI, no scleral icterus ENT: MMM NECK: Trachea midline, supple LUNGS: clear to auscultation bilaterally, no crackles. no accessory muscle use HEART: RRR, normal S1 and S2, no murmur noted ABDOMEN: Soft, nontender, nondistended, normoactive bowel sounds, no guarding EXTREMITIES: 2+ pulses, warm, well-perfused, no edema. Rheumatoid arthritic changes of both hands. NEUROLOGICAL: normal speech, sensation intact throughout PSYCH: appropriate mood and affect SKIN: Warm, dry, normal turgor LABS Laboratory Results - last 24 hr 08/05/19 08/05/19 08/06/19 00:50 00:50 06:40 WBC 5.3 RBC 3.53 L Hgb 9.8 L Hct 29.4 L MCV 83.4 MCH 27.8 MCHC 33.3 RDW 16.2 H Plt Count 397 D MPV 8.0 Sodium Potassium Chloride Carbon Dioxide Anion Gap BUN Creatinine Est GFR (CKD-EPI)AfAm Est GFR (CKD-EPI)NonAf Random Glucose Calcium Magnesium Iron TIBC Iron Saturation Unsaturated IBC Ferritin Total Bilirubin AST ALT Alkaline Phosphatase Total Protein Albumin Vitamin B12 Serum Folate Hep A IgM Ab Confirm Negative Hep Bs Antigen Negative Hep B Core IgM Ab Negative Hepatitis C Ab (EIA) <0.1 HIV 1&2 Ag/Ab, 4th Gen Non reactive 08/06/19 06:40 WBC RBC Hgb Hct MCV MCH MCHC RDW Plt Count MPV Sodium 146 H Potassium 3.5 Chloride 113 H Carbon Dioxide 23 Anion Gap 10 BUN 5.8 L Creatinine 0.6 Est GFR (CKD-EPI)AfAm 119.77 Est GFR (CKD-EPI)NonAf 103.34 Random Glucose 108 H Calcium 9.4 Magnesium 2.3 Iron 34 L TIBC 255 Iron Saturation 13 L Unsaturated IBC 221 Ferritin 164.7 Total Bilirubin 0.2 AST 36 ALT 62 H Alkaline Phosphatase 464 H Total Protein 6.6 Albumin 2.7 L Vitamin B12 953 Serum Folate 27 H Hep A IgM Ab Confirm Hep Bs Antigen Hep B Core IgM Ab Hepatitis C Ab (EIA) HIV 1&2 Ag/Ab, 4th [facility] HOSPITAL COURSE: Date of Admission:08/04/19 Date of Discharge: 08/06/19 54 y/o/f with PMHx of RA, HTN, brain aneurysm (s/p clipping), Substance abuse, presents to ED for 3 days of chest tightness, SOB, productive cough and fever. CT showed multifocal infiltrates suggestive of pneumonia. Patient was treated with Levaquin IV abx while in the hospital. She was also treated with duonebs and albuterol for chest tightness. On admission patient was found to have elevated liver enzymes so her Methotrexate was held while in the hospital. LFTs showed improvement. Patient was also found to have a 2.8 cm splenic artery aneurysm on imaging. She was seen by vascular surgery who recommended an elective procedure due to risk of rupture due to the size of the aneurysm. Explained to patient the risk of rupture and to return to the hospital immediately if she has abd pain. Patient was found to have iron deficiency anemia while in the hospital and was started on Iron supplementations. Patient discharged with abx to complete 7 day course of Levaquin. Patient to follow up with vascular surgery and GI after discharge. Stable for discharge at this time. Minutes to complete discharge: 36 Discharge Summary Problems reviewed: Yes Reason For Visit: PNEUMONIA Current Active Problems Cough (Acute) Anemia (Chronic) Splenic artery aneurysm (Chronic) Condition: Improved - Instructions Diet, Activity, Other Instructions: You presented to the hospital with cough, chest tightness, and fever and were found to have a pneumonia. You were treated with IV antibiotics and nebulizer treatments which improved your symptoms. Incidentally, on imaging you were found to have 2.8cm Splenic artery aneurysm and were seen by vascular surgery and were advised to follow up with Dr. Molina for a elective intervention. You were also found to have anemia and are being started on supplemental Iron. Medication Changes: 1. Started on Iron supplements, please take as directed. 2. Started on Levaquin 750mg for 5 days. Follow up with the following physicians: 1. Please follow up with your primary care provider within one week of discharge. 2. Follow up with Vascular Surgery, Dr. Molina, within one week of discharge for further management of your splenic artery aneurysm. In general, ALIYAH less than 2 cm are observed and when they reach 3 cm they should be treated. You are at risk of rupture of your aneurysm so please follow up with Dr. Molina promptly. Risk of rupture is greater in and non- calcified aneyursms. If you have any abdominal pain please return to the ED. 3. Follow up with GI, Dr. Riley, within one week of discharge for your iron deficiency anemia. Activity and Diet 1. You are being discharged home. Recommend daily exercise to help strengthen your muscles. 2. Please continue to monitor your diet as you need to intake less salt and drink plenty of fluids. Continue all your other medications as prescribed Please return to the ER if you have any signs or symptoms of chest pain, shortness of breath, uncontrollable fever, chills, nausea, vomiting, numbness, tingling, or weakness in any part of your body, changes in vision, or slurred speech. Please return to the ER if symptoms persist, worsen, or new symptoms arise. Referrals: Toña Riley MD [Staff Physician] - 1 Week Osman Alves [Primary Care Provider] - Shahzad Molina MD [Staff Physician] - Disposition: HOME - Home Medications Comprehensive Discharge Medication List: Ambulatory Orders Methotrexate Sodium [Methotrexate] 2.5 mg PO WEEKLY 03/08/17 Amlodipine Besylate [Norvasc -] 5 mg PO DAILY 08/05/19 Oxycodone HCl/Acetaminophen [Percocet 10-325 mg Tablet] 10 - 325 mg PO QID 08/05 predniSONE [Deltasone -] 5 mg PO DAILY 08/05/19 Ferrous Sulfate 325 mg PO BID #30 tablet 08/06/19 levoFLOXacin [Levaquin] 750 mg PO DAILY 5 Days #5 tab 08/06/19 This patient is new to me today: No Emergency Visit: Yes ED Registration Date: 08/04/19 Care time: The patient presented to the Emergency Department on the above date and was hospitalized for further evaluation of their emergent condition. Critical Care patient: No - Discharge Referral Referred to [facility] No ATTENDING PHYSICIAN STATEMENT I saw and evaluated the patient. I reviewed the resident's note and discussed the case with the resident. I agree with the resident's findings and plan as documented. SUBJECTIVE: OBJECTIVE: ASSESSMENT AND PLAN:
[2019-08-06] MEDS ORDERED: SODIUM POLYSTYRENE SULFONATE 15 GM/60 ML BOTTLE ONE (17:21)
[2019-08-06] MEDS: predniSONE 5 MG TABLET (UD) PO STA ×2 (17:27→17:31)
[2019-08-06 18:43] VITALS: BP 128/83; PULSE 103; TEMP 97.5
== END 2019-08-06 18:37 | disposition home or self-care (01) | DRG 139 ==
LOC: JER 15:59 → JERBED 20:47 → J4W 08-06 00:41
PROVIDERS: ADMIT Internal Medicine
DX: J18.9 Pneumonia, unspecified organism (principal); I72.8 Aneurysm of other specified arteries; E88.09 Other disorders of plasma-protein metabolism, not elsewhere classified; E87.6 Hypokalemia; M06.9 Rheumatoid arthritis, unspecified; I10 Essential (primary) hypertension; F14.10 Cocaine abuse, uncomplicated; F11.10 Opioid abuse, uncomplicated; F12.10 Cannabis abuse, uncomplicated; D64.9 Anemia, unspecified; Z88.0 Allergy status to penicillin; R74.0 Nonspecific elevation of levels of transaminase and lactic acid dehydrogenase [LDH]; F17.210 Nicotine dependence, cigarettes, uncomplicated
CPT/HCPCS: 36415; 71046-TC-FY; 71250-TC; 74150-TC; 74177-TC; 76705-TC; 80053; 80074; 80307; 81003; 82607; 82728; 82746; 83540; 83550; 83605; 83690; 83735; 84100; 84484; 85025; 85027; 87040; 87070; 87086; 87205; 87389; 87804; 93005; 93010; 93308; 94640; 99285-25; G0008; J0131; J1644; J7030; Q2036

== ENCOUNTER 2019-11-27 14:19 | Emergency (ER) | payer OTHER ==
[2019-11-27 14:24] VITALS: BP 164/108; PULSE 95; TEMP 100.4
[2019-11-27] MEDS ORDERED: ACETAMINOPHEN 325 MG TABLET (FP) PO ONE (14:29)
[2019-11-27] MEDS ORDERED: IBUPROFEN 600 MG TABLET (FP) PO ONE (14:31)
[2019-11-27] MEDS ORDERED: IBUPROFEN 400 MG TABLET (FP) PO ONE (14:36)
== END 2019-11-27 14:37 | disposition home or self-care (01) ==
LOC: JER 14:19
DX: R06.02 Shortness of breath (principal); R50.9 Fever, unspecified; R05 Cough
CPT/HCPCS: 99283-25

== ENCOUNTER 2020-12-19 12:57 | Inpatient (IN) | payer OTHER ==
[2020-12-19 13:13] VITALS: BMI 25.2
[2020-12-19 15:20] LABS: BASO % 0.7 % (0-2.0); EOS % 0.6 % (0-4.5); HEMATOCRIT 27.5 % (32.4-45.2); HEMOGLOBIN 8.7 GM/dL (10.7-15.3); LYMPH % 24.3 % (8-40); MCH 23.3 pg (25.7-33.7); MCHC 31.7 g/dl (32.0-36.0); MEAN CELL VOLUME 73.3 fl (80-96); MEAN PLT VOLUME 6.7 fl (7.5-11.1); MONO % 6.2 % (3.8-10.2); NEUT % 68.2 % (42.8-82.8); PLATELET COUNT 629 K/MM3 (134-434); RBC 3.75 M/mm3 (3.60-5.2); RDW 20.4 % (11.6-15.6); WHITE BLOOD COUNT 7.2 K/mm3 (4.0-10.0)
[2020-12-19 15:24] LABS: INR 1.23 (0.83-1.09); PROTHROMBIN TIME (PATIENT) 14.8 SEC (9.7-13.0)
[2020-12-19 15:27] LABS: ACTIVATED PTT 34.2 SECONDS (25.2-36.5)
[2020-12-19 15:41] LABS: ALBUMIN 2.4 g/dl (3.4-5.0); BLOOD UREA NITROGEN 12.1 mg/dL (7-18); CALCIUM 9.4 mg/dL (8.5-10.1); MAGNESIUM 2.2 mg/dL (1.8-2.4)
[2020-12-19 15:44] LABS: CREATININE 0.5 mg/dL (0.55-1.3); PHOSPHOROUS 3.1 mg/dL (2.5-4.9)
[2020-12-19 15:46] LABS: BILIRUBIN,TOTAL 0.3 mg/dL (0.2-1); TOT PROT 8.1 g/dl (6.4-8.2)
[2020-12-19 17:20] LABS: BF WBC & OTHER NUCLEATED CELLS 9359 /mm3
[2020-12-19 17:26] LABS: CRYSTALS,SYNOVIAL FLUID NEGATIVE
[2020-12-19 17:44] LABS: BODY FLUID MONOCYTE 12 %
[2020-12-19] MEDS ORDERED: amLODIPine BESYLATE 5 MG TABLET (FP) ONE (19:54)
[2020-12-19] MEDS ORDERED: metoPROLOL SUCCINATE 25 MG TAB.SR.24H (FP) ONE (19:54)
[2020-12-19] MEDS: metoPROLOL SUCCINATE 25 MG TAB.SR.24H (FP) PO SCH (19:58)
[2020-12-19] MEDS: amLODIPine BESYLATE 5 MG TABLET (FP) PO SCH (19:58)
[2020-12-19] MEDS ORDERED: HEPARIN NA (PORCINE) 5,000 UNITS/ML 1ML VIAL ONE (20:21)
[2020-12-19] MEDS: HEPARIN NA (PORCINE) 5,000 UNITS/ML 1ML VIAL SQ SCH (21:45)
[2020-12-20] MEDS: ACETAMINOPHEN 1000 MG/100 ML VIAL (NON FORMULARY) IVPB PRN ×3 (00:03→14:46)
[2020-12-20] MEDS: oxyCODONE HCL 5 MG TABLET PO PRN ×4 (01:22→15:30)
[2020-12-20] MEDS ORDERED: oxyCODONE HCL 5 MG TABLET PO PRN ×2 (03:00→15:30)
[2020-12-20] MEDS: HEPARIN NA (PORCINE) 5,000 UNITS/ML 1ML VIAL SQ SCH ×2 (05:54→14:45)
[2020-12-20 08:14] LABS: BASO % 1.2 % (0-2.0); EOS % 5.1 % (0-4.5); HEMATOCRIT 28.9 % (32.4-45.2); HEMOGLOBIN 9.5 GM/dL (10.7-15.3); LYMPH % 27.1 % (8-40); MCH 23.7 pg (25.7-33.7); MCHC 32.8 g/dl (32.0-36.0); MEAN CELL VOLUME 72.4 fl (80-96); MEAN PLT VOLUME 6.5 fl (7.5-11.1); MONO % 6.9 % (3.8-10.2); NEUT % 59.7 % (42.8-82.8); PLATELET COUNT 690 K/MM3 (134-434); RBC 3.99 M/mm3 (3.60-5.2); RDW 20.4 % (11.6-15.6); WHITE BLOOD COUNT 7.7 K/mm3 (4.0-10.0)
[2020-12-20 08:43] LABS: ALBUMIN 2.6 g/dl (3.4-5.0); CALCIUM 9.7 mg/dL (8.5-10.1)
[2020-12-20 08:44] LABS: BLOOD UREA NITROGEN 12.5 mg/dL (7-18); MAGNESIUM 2.4 mg/dL (1.8-2.4)
[2020-12-20 08:46] LABS: CREATININE 0.7 mg/dL (0.55-1.3)
[2020-12-20 08:47] LABS: PHOSPHOROUS 3.4 mg/dL (2.5-4.9)
[2020-12-20 08:48] LABS: BILIRUBIN,TOTAL 0.7 mg/dL (0.2-1); TOT PROT 8.6 g/dl (6.4-8.2)
[2020-12-20] MEDS ORDERED: POTASSIUM CHLORIDE TABS 20 MEQ TABLET.ER (FP) PO ONE (08:50)
[2020-12-20] MEDS ORDERED: PT OWN MED DRAWER 7, Y5N ONE (09:49)
[2020-12-20] MEDS ORDERED: predniSONE 5 MG TABLET (UD) PO SCH (10:00)
[2020-12-20] MEDS ORDERED: DOCUSATE SODIUM 100 MG CAPSULE (FP) PO SCH (10:00)
[2020-12-20] MEDS: amLODIPine BESYLATE 5 MG TABLET (FP) PO SCH (10:11)
[2020-12-20] MEDS: NICOTINE 14 MG/24 HOURS TOPICAL PATCH TD SCH ×2 (10:46)
[2020-12-20] MEDS ORDERED: ALPRAZolam 0.25 MG TABLET PO PRN (15:21)
[2020-12-20] MEDS ORDERED: ACETAMINOPHEN 325 MG TABLET (FP) PO PRN (15:30)
[2020-12-20] MEDS ORDERED: LIDOCAINE 5% TOPICAL PATCH TP SCH (15:30)
[2020-12-20] MEDS: metoPROLOL SUCCINATE 25 MG TAB.SR.24H (FP) PO SCH (17:38)
[2020-12-20 18:38] VITALS: BP 144/90; PULSE 90; TEMP 98.1
[2020-12-20] MEDS ORDERED: LIDOCAINE PATCH REMOVAL MC SCH (22:00)
== END 2020-12-20 18:10 | disposition home or self-care (01) | DRG 346 ==
LOC: JER 12:57 → JERBED 18:41 → J4S 23:56
PROVIDERS: ADMIT Student in an Organized Health Care Education/Training Program; ATTEND Nurse Practitioner Acute Care
PROC: 0S9D3ZX Drainage of Left Knee Joint, Percutaneous Approach, Diagnostic (ICD-10-PCS; principal; 2020-12-19)
DX: M06.862 Other specified rheumatoid arthritis, left knee (principal); M25.562 Pain in left knee; D64.9 Anemia, unspecified; I10 Essential (primary) hypertension; D75.1 Secondary polycythemia; I67.1 Cerebral aneurysm, nonruptured; F11.20 Opioid dependence, uncomplicated
CPT/HCPCS: 36415; 73523-TC-FY; 73562-TC-LT-FY; 73700-TC-RT; 80053; 82728; 82977; 83540; 83550; 83735; 84100; 85025; 85610; 85651; 85730; 86140; 86850; 86900; 86901; 87040; 87070; 87075; 87081; 87205; 89060; 93005; 93010; 93971-TC; 97116-GP; 97161-GP; 99285-25; C9803; J0131; J1644; U0003; U0005

== ENCOUNTER 2022-08-20 10:51 | Emergency (ER) | payer OTHER ==
[2022-08-20 11:00] VITALS: BP 137/80; PULSE 110; RESP 18; TEMP 98.6; BMI 26.4
[2022-08-20] MEDS: ALBUTEROL SO4 2.5/IPRATROPIUM 0.5 INH SOL 3 ML VIAL.NEB. NEB SCH ×4 (12:35→13:25)
[2022-08-20 14:09] LABS: BASO % 1.2 % (0-2.0); EOS % 11.2 % (0-4.5); HEMATOCRIT 29.9 % (32.4-45.2); HEMOGLOBIN 9.5 GM/dL (10.7-15.3); LYMPH % 15.5 % (8-40); MCH 24.8 pg (25.7-33.7); MCHC 31.7 g/dl (32.0-36.0); MEAN PLT VOLUME 7.2 fl (7.5-11.1); MONO % 2.1 % (3.8-10.2); PLATELET COUNT 747 10^3/uL (134-434); RBC 3.83 M/mm3 (3.60-5.2); RDW 19.8 % (11.6-15.6); WHITE BLOOD COUNT 7.5 K/mm3 (4.0-10.0)
[2022-08-20 14:34] LABS: BLOOD UREA NITROGEN 11.8 mg/dL (7-18); CALCIUM 10.3 mg/dL (8.5-10.1)
[2022-08-20 14:35] LABS: ALBUMIN 2.5 g/dl (3.4-5.0)
[2022-08-20 14:38] LABS: CREATININE 0.7 mg/dL (0.55-1.3)
[2022-08-20 14:39] LABS: BILIRUBIN,TOTAL 0.7 mg/dL (0.2-1); TOT PROT 7.8 g/dl (6.4-8.2)
== END 2022-08-20 14:40 | disposition home or self-care (01) ==
LOC: JER 10:51
PROC: 3E0F7GC Introduction of Other Therapeutic Substance into Respiratory Tract, Via Natural or Artificial Opening (ICD-10-PCS; principal; 2022-08-20)
DX: R06.2 Wheezing (principal)
CPT/HCPCS: 36415; 71046-TC-FY; 80053; 85025; 94640; 99285-25

== ENCOUNTER 2022-12-15 16:47 | Emergency (ER) | payer OTHER ==
[2022-12-15 17:10] VITALS: BP 121/74; PULSE 96; RESP 20; TEMP 98; BMI 24.7
[2022-12-15] MEDS ORDERED: ALBUTEROL SO4 2.5/IPRATROPIUM 0.5 INH SOL 3 ML VIAL.NEB. NEB ONE ×2 (17:34→17:49)
[2022-12-15 18:39] LABS: BASO % 0.9 % (0-2.0); EOS % 6.5 % (0-4.5); HEMATOCRIT 30.4 % (32.4-45.2); HEMOGLOBIN 9.8 GM/dL (10.7-15.3); LYMPH % 10.2 % (8-40); MCH 25.8 pg (25.7-33.7); MCHC 32.3 g/dl (32.0-36.0); MEAN PLT VOLUME 6.7 fl (7.5-11.1); MONO % 1.8 % (3.8-10.2); NEUT % 80.6 % (42.8-82.8); PLATELET COUNT 590 10^3/uL (134-434); RDW 18.2 % (11.6-15.6); WHITE BLOOD COUNT 9.8 K/mm3 (4.0-10.0)
[2022-12-15 18:54] LABS: CHLORIDE 102 mmol/L (98-107); POTASSIUM 4.1 mmol/L (3.5-5.1); SODIUM 136 mmol/L (136-145)
[2022-12-15 18:55] LABS: CALCIUM 10.9 mg/dL (8.5-10.1)
[2022-12-15 18:55] LABS: EPI CELLS 20 /uL (0-25.1); HYALINE CASTS 3 /uL (0-3.1); URINE APPEARANCE CLEAR; URINE BACTERIA 69 /uL (0-1359); URINE BILIRUBIN NEGATIVE (NEGATIVE); URINE COLOR YELLOW; URINE GLUCOSE (UA) NEGATIVE (NEGATIVE); URINE KETONE NEGATIVE (NEGATIVE); URINE LEUK ESTERASE TRACE (NEGATIVE); URINE NITRITE NEGATIVE (NEGATIVE); URINE PROTEIN TRACE (NEGATIVE); URINE RBC 63 /uL (0-23.9); URINE UROBILINOGEN 0.2 mg/dL (0.2-1.0); URINE WBC 12 /uL (0-25.8)
[2022-12-15 18:56] LABS: ALBUMIN 3.3 g/dl (3.4-5.0); ANION GAP 6 MMOL/L (8-16); BLOOD UREA NITROGEN 13.2 mg/dL (7-18); CO2 28 mmol/L (21-32); GLUCOSE,RANDOM 121 mg/dL (74-106)
[2022-12-15 18:59] LABS: SGOT/AST 32 U/L (15-37); SGPT/ALT 26 U/L (13-61)
[2022-12-15 19:00] LABS: BILIRUBIN,TOTAL 0.5 mg/dL (0.2-1); TOT PROT 7.6 g/dl (6.4-8.2)
[2022-12-15 19:02] LABS: ALK PHOS 405 U/L (45-117)
[2022-12-15 19:16] LABS: COCAINE, UR NEGATIVE (NEGATIVE); METHADONE, UR NEGATIVE (NEGATIVE); PHENCYCLIDINE,URINE NEGATIVE (NEGATIVE); URINE AMPHETAMINES NEGATIVE (NEGATIVE); URINE BARBITURATES NEGATIVE (NEGATIVE); URINE BENZODIAZEPINES NEGATIVE (NEGATIVE)
[2022-12-15 19:28] LABS: OPIATES, URI POSITIVE (NEGATIVE)
== END 2022-12-16 00:34 | disposition left against medical advice (07) ==
LOC: JER 16:47
PROC: 3E0F7GC Introduction of Other Therapeutic Substance into Respiratory Tract, Via Natural or Artificial Opening (ICD-10-PCS; principal; 2022-12-15)
DX: R06.02 Shortness of breath (principal); R05.9 Cough, unspecified; R06.2 Wheezing; Z20.822 Contact with and (suspected) exposure to COVID-19
CPT/HCPCS: 0241U-QW; 36415; 71045-TC-FY; 71275-TC; 80053; 80307; 81003; 84484; 85025; 85379; 93005; 93010; 99285-25; Q9967

== ENCOUNTER 2023-04-27 13:23 | Observation (INO) | payer OTHER ==
[2023-04-27] MEDS: ALBUTEROL SO4 2.5/IPRATROPIUM 0.5 INH SOL 3 ML VIAL.NEB. NEB SCH ×5 (14:15→21:23)
[2023-04-27] MEDS ORDERED: methylPREDNISolone NA SUCC 125 MG/2 ML VIAL IVPUSH ONE (14:25)
[2023-04-27] MEDS ORDERED: methylPREDNISolone NA SUCC 125 MG/2 ML VIAL ONE (14:34)
[2023-04-27 15:03] LABS: BASO % 0.9 % (0-2.0); HEMATOCRIT 32.7 % (32.4-45.2); HEMOGLOBIN 10.1 GM/dL (10.7-15.3); LYMPH % 18.8 % (8-40); MCH 24.1 pg (25.7-33.7); MEAN CELL VOLUME 77.8 fl (80-96); MEAN PLT VOLUME 7.1 fl (7.5-11.1); MONO % 5.2 % (3.8-10.2); NEUT % 65.1 % (42.8-82.8); PLATELET COUNT 429 10^3/uL (134-434); RBC 4.21 M/mm3 (3.60-5.2); RDW 23.5 % (11.6-15.6); WHITE BLOOD COUNT 9.7 K/mm3 (4.0-10.0)
[2023-04-27 15:08] LABS: VENOUS BASE EXCESS 1.3 mmol/L (-2-2); VENOUS O2 SATURATION 68.6 % (70-80); VENOUS PCO2 59.2 mmHg (38-52); VENOUS PH 7.303 (7.310-7.410)
[2023-04-27 15:10] LABS: INR 1.06 (0.83-1.09); PROTHROMBIN TIME (PATIENT) 12.3 SEC (9.7-13.0)
[2023-04-27 15:13] LABS: ACTIVATED PTT 41.9 SECONDS (25.2-36.5)
[2023-04-27 15:25] LABS: POTASSIUM 3.9 mmol/L (3.5-5.1)
[2023-04-27 15:27] LABS: ALBUMIN 3.3 g/dl (3.4-5.0); BLOOD UREA NITROGEN 13.2 mg/dL (7-18); CALCIUM 9.6 mg/dL (8.5-10.1)
[2023-04-27 15:30] LABS: CREATININE 0.6 mg/dL (0.55-1.3)
[2023-04-27 15:32] LABS: BILIRUBIN,TOTAL 0.5 mg/dL (0.2-1); TOT PROT 7.3 g/dl (6.4-8.2)
[2023-04-27 15:35] LABS: N-TERMINAL BNP 79.5 pg/ml (5-125)
[2023-04-27] MEDS ORDERED: AZITHROMYCIN IVPB 500 MG in DEXTROSE 5%-WATER - 250 ML IVPB ONE (15:38)
[2023-04-27] MEDS ORDERED: AZITHROMYCIN IVPB 500 MG/250 ML BAG IVPB ONE (15:49)
[2023-04-27 16:29] LABS: ANISOCYTOSIS 3+; MACROCYTOSIS 0
[2023-04-27] MEDS ORDERED: ACETAMINOPHEN 325 MG TABLET (FP) PO PRN (17:45)
[2023-04-27] MEDS ORDERED: oxyCODONE HCL 5 MG TABLET PO PRN (17:45)
[2023-04-27 18:23] VITALS: RESP 18
[2023-04-27] MEDS ORDERED: DOXYCYCLINE HYCLATE 100 MG VIAL ONE (18:42)
[2023-04-27] MEDS ORDERED: DOXYCYCLINE HYCLATE 100 MG CAPSULE PO ONE (21:08)
[2023-04-27] MEDS ORDERED: FERROUS SO4 325 MG TABLET (FP) ONE (21:08)
[2023-04-27] MEDS ORDERED: HEPARIN NA (PORCINE) 5,000 UNITS/ML 1ML VIAL ONE (21:08)
[2023-04-27] MEDS ORDERED: ALBUTEROL SO4 2.5/IPRATROPIUM 0.5 INH SOL 3 ML VIAL.NEB. NEB ONE (21:08)
[2023-04-27] MEDS: DOXYCYCLINE HYCLATE 100 MG CAPSULE PO SCH (21:23)
[2023-04-27] MEDS: FERROUS SO4 325 MG TABLET (FP) PO SCH (21:23)
[2023-04-27] MEDS: HEPARIN NA (PORCINE) 5,000 UNITS/ML 1ML VIAL SQ SCH (21:23)
[2023-04-28] MEDS ORDERED: ALBUTEROL SO4 2.5/IPRATROPIUM 0.5 INH SOL 3 ML VIAL.NEB. NEB ONE (00:08)
[2023-04-28] MEDS: ALBUTEROL SO4 2.5/IPRATROPIUM 0.5 INH SOL 3 ML VIAL.NEB. NEB SCH ×4 (00:14→11:51)
[2023-04-28 04:59] VITALS: BMI 27.0
[2023-04-28] MEDS ORDERED: DOCUSATE SODIUM 100 MG CAPSULE (FP) PO SCH (10:00)
[2023-04-28] MEDS ORDERED: amLODIPine BESYLATE 5 MG TABLET (FP) PO SCH (10:00)
[2023-04-28] MEDS ORDERED: predniSONE 20 MG TABLET (UD) PO SCH (10:00)
[2023-04-28 10:55] LABS: BASO % 0.2 % (0-2.0); HEMOGLOBIN 8.9 GM/dL (10.7-15.3); LYMPH % 22.4 % (8-40); MCH 24.1 pg (25.7-33.7); MCHC 31.9 g/dl (32.0-36.0); MEAN CELL VOLUME 75.4 fl (80-96); MEAN PLT VOLUME 6.8 fl (7.5-11.1); MONO % 7.7 % (3.8-10.2); NEUT % 68.7 % (42.8-82.8); PLATELET COUNT 358 10^3/uL (134-434); RBC 3.72 M/mm3 (3.60-5.2); WHITE BLOOD COUNT 7.5 K/mm3 (4.0-10.0)
[2023-04-28] MEDS: DOXYCYCLINE HYCLATE 100 MG CAPSULE PO SCH (11:04)
[2023-04-28] MEDS: FERROUS SO4 325 MG TABLET (FP) PO SCH (11:04)
[2023-04-28] MEDS: HEPARIN NA (PORCINE) 5,000 UNITS/ML 1ML VIAL SQ SCH (11:05)
[2023-04-28 11:16] LABS: POTASSIUM 3.2 mmol/L (3.5-5.1)
[2023-04-28 11:19] LABS: CALCIUM 9.5 mg/dL (8.5-10.1)
[2023-04-28 11:20] LABS: BLOOD UREA NITROGEN 13.8 mg/dL (7-18)
[2023-04-28 11:23] LABS: CREATININE 0.5 mg/dL (0.55-1.3)
[2023-04-28 14:25] VITALS: BP 159/80; PULSE 95; TEMP 98.3
== END 2023-04-28 15:30 | disposition home or self-care (01) ==
LOC: JER 13:23 → JERBED 15:44 → INTOOBSV 15:44 → J6S 04-28 01:33
PROVIDERS: ADMIT Internal Medicine; ATTEND Internal Medicine
PROC: 3E0F7GC Introduction of Other Therapeutic Substance into Respiratory Tract, Via Natural or Artificial Opening (ICD-10-PCS; principal; 2023-04-27)
PROC: 3E03329 Introduction of Other Anti-infective into Peripheral Vein, Percutaneous Approach (ICD-10-PCS; 2023-04-27)
PROC: 3E023GC Introduction of Other Therapeutic Substance into Muscle, Percutaneous Approach (ICD-10-PCS; 2023-04-27)
PROC: 3E033GC Introduction of Other Therapeutic Substance into Peripheral Vein, Percutaneous Approach (ICD-10-PCS; 2023-04-27)
DX: J45.901 Unspecified asthma with (acute) exacerbation (principal); M06.9 Rheumatoid arthritis, unspecified; D50.9 Iron deficiency anemia, unspecified; Z96.651 Presence of right artificial knee joint; Z87.891 Personal history of nicotine dependence; Z88.0 Allergy status to penicillin
CPT/HCPCS: 0241U-QW; 36415; 71045-TC-FY; 80048; 80053; 82803; 83605; 83880; 84484; 85025; 85610; 85730; 87040; 93005; 93010; 93970-TC; 94640; 96365; 96372; 96375; 99285-25; G0378; J1644